=== PATIENT | male | born 1955 | race Caucasian/White ===

== ENCOUNTER 2020-06-17 13:18 | Inpatient (IN) ==
--- NOTE | 2020-06-17 14:09 | Emergency Department Note ---
History of Present Illness General Chief Complaint: Abdominal Pain Stated Complaint: ABD PAIN Time Seen by Provider: 06/17/20 13:58 Source: patient Mode of arrival: ambulatory Limitations: no limitations History of Present Illness Provider Complaint: abdominal pain Maximum Pain Intensity: 0 This is a 65-year-old male who presents to the ED with a chief complaint of shortness of breath and abdominal distention related to ascites. The patient was diagnosed with pancreatic head cancer in early May. He was set up for his first chemotherapy treatment today. The patient states that he went there and was transferred here because he was having difficulty breathing and he has abdominal distention and shortness of breath. The patient states that he has not been eating or drinking much because of his abdominal distention. He was feeling short of breath. The patient's initial pulse ox here was 88%. He was apparently hypotensive at the oncology office with blood pressures in the 80s. His initial blood pressure here was 90 systolic. The patient was also tachycardic with a heart rate of 112. He is afebrile. He reports of abdominal distention and discomfort related to the distention as well as shortness of breath related to the distention. The patient has no additional complaints at this time. Home Medications Home Medications Medication Instructions Recorded Confirmed Type aspirin 81 mg PO PM 05/14/20 06/17/20 History cyanocobalamin (vitamin B-12) 500 mcg PO PM 05/14/20 06/17/20 History [Vitamin B-12] lisinopril 2.5 mg PO HS 05/14/20 06/17/20 History metformin 500 mg PO QAM 05/14/20 06/17/20 History omega 6-dfe-oiz-fish oil [Fish Oil] 1 cap PO PM 05/14/20 06/17/20 History omeprazole 20 mg PO HS 05/14/20 06/17/20 History oxycodone-acetaminophen [Percocet] 1 tab PO Q6H PRN #7 tab 06/11/20 06/17/20 Rx atenolol 50 mg PO DAILY 06/17/20 06/17/20 History ondansetron HCl 8 mg PO Q8H PRN 06/17/20 06/17/20 History prochlorperazine maleate 10 mg PO Q6H PRN 06/17/20 06/17/20 History [Compazine] Allergies Allergy/AdvReac Type Severity Reaction Status Date / Time No Known Allergies Allergy Verified 06/17/20 15:58 Past Med/Surg History Medical History DM2 (diabetes mellitus, type 2) NIDDM GERD (gastroesophageal reflux disease) History of biliary stent insertion AT [place] MAY 2020 Hypertension Liver metastases Neuroendocrine carcinoma PER PATIENT Osteoarthritis Pancreatic mass Surgical History History of colonoscopy History of esophagogastroduodenoscopy (EGD) History of hernia repair INGUINAL X2 Social History Smoking Status: Former smoker Second Hand Exposure: Yes; Hx Alcohol Use: Yes Hx Substance Use: No Preferred Language: [place] Communication Ability: Effective [employer] Required: No Beliefs That Will Affect Care: None Current Living Situation: Spouse Other Information That Helps Us Care for You: No Feels Safe at Home: Yes Safety Concerns: Feels Safe At This Time Review of Systems A total of 10 systems reviewed and were otherwise negative Physical Exam Vital Signs: Vital Signs - 24 hr 06/17/20 13:44 06/17/20 13:51 06/17/20 13:54 Temperature 36.2 C L Temperature Source Oral Pulse Rate 111 H 113 H Pulse Rate [Left F leonel] 112 H Pulse Rate from Sp O2 Sensor 113 H Respiratory Rate 24 36 H 37 H Respiratory Effort / Characteristics Non-Labored Respiratory Depth Normal Blood Pressure 97/61 L Blood Pressure [Le ft Arm] 97/61 L Blood Pressure Jacquie n 82 Blood Pressure Jacquie n [Left Arm] 73 Pulse Oximetry 90 90 90 Oxygen Delivery Me thod Room Air Oxygen Flow Rate Sepsis Recent Feve r Within 48 Hours No Sepsis New/Unexpla ined Change in Men roseanna Status No Sepsis Action Take n by Nursing Physician Notified Oxygen Flow Rate - Titration Pulse Oximetry Pos t Tiitration 06/17/20 13:55 06/17/20 13:58 06/17/20 14:01 Temperature Temperature Source Pulse Rate 110 H 111 H Pulse Rate [Left F leonel] Pulse Rate from Sp O2 Sensor 109 H 111 H Respiratory Rate 35 H 35 H Respiratory Effort / Characteristics Respiratory Depth Blood Pressure Blood Pressure [Le ft Arm] Blood Pressure Jacquie n Blood Pressure Jacquie n [Left Arm] Pulse Oximetry 89 L 88 L 91 Oxygen Delivery Me thod Room Air Oxygen Flow Rate Sepsis Recent Feve r Within 48 Hours Sepsis New/Unexpla ined Change in Men roseanna Status Sepsis Action Take n by Nursing Oxygen Flow Rate - Titration 2 Pulse Oximetry Pos t Tiitration 93 06/17/20 14:02 06/17/20 14:13 06/17/20 14:30 Temperature Temperature Source Pulse Rate 109 H 106 H 102 H Pulse Rate [Left F leonel] 111 H Pulse Rate from Sp O2 Sensor 109 H 106 H 103 H Respiratory Rate 31 H 14 26 H Respiratory Effort / Characteristics Respiratory Depth Blood Pressure 100/71 96/63 L 107/58 L Blood Pressure [Le ft Arm] 100/71 Blood Pressure Jacquie n 77 72 63 Blood Pressure Jacquie n [Left Arm] 80 Pulse Oximetry 91 92 96 Oxygen Delivery Me thod Nasal Cannula Nasal Cannula Oxygen Flow Rate 2 3 Sepsis Recent Feve r Within 48 Hours Sepsis New/Unexpla ined Change in Men roseanna Status Sepsis Action Take n by Nursing Oxygen Flow Rate - Titration Pulse Oximetry Pos t Tiitration 06/17/20 15:00 06/17/20 15:01 06/17/20 15:11 Temperature Temperature Source Pulse Rate 110 H 109 H Pulse Rate [Left F leonel] Pulse Rate from Sp O2 Sensor 110 H 109 H Respiratory Rate Respiratory Effort / Characteristics Respiratory Depth Blood Pressure 125/54 L Blood Pressure [Le ft Arm] Blood Pressure Jacquie n 90 Blood Pressure Jacquie n [Left Arm] Pulse Oximetry 94 95 92 Oxygen Delivery Me thod Nasal Cannula Oxygen Flow Rate 2 Sepsis Recent Feve r Within 48 Hours Sepsis New/Unexpla ined Change in Men roseanna Status Sepsis Action Take n by Nursing Oxygen Flow Rate - Titration Pulse Oximetry Pos t Tiitration 06/17/20 15:30 06/17/20 16:17 06/17/20 16:18 Temperature Temperature Source Pulse Rate 118 H 106 H 100 H Pulse Rate [Left F leonel] Pulse Rate from Sp O2 Sensor 107 H 101 H Respiratory Rate 28 H 26 H Respiratory Effort / Characteristics Respiratory Depth Blood Pressure 117/85 104/63 Blood Pressure [Le ft Arm] Blood Pressure Jacquie n 94 88 Blood Pressure Jacquie n [Left Arm] Pulse Oximetry 91 95 Oxygen Delivery Me thod Oxygen Flow Rate Sepsis Recent Feve r Within 48 Hours Sepsis New/Unexpla ined Change in Men roseanna Status Sepsis Action Take n by Nursing Oxygen Flow Rate - Titration Pulse Oximetry Pos t Tiitration Physical Exam: CONSTITUTIONAL/VITAL SIGNS: Reviewed / noted above. GENERAL: Non-toxic in appearance. INTEGUMENTARY: Warm, dry, and [place]. HEAD: Normocephalic. EYES: without scleral icterus or trauma. ENT/OROPHARYNX: clear and moist. LYMPHADENOPATHY/NECK: Is supple without lymphadenopathy or meningismus. RESPIRATORY: Lungs clear and equal. CARDIOVASCULAR: Regular rate and rhythm. GI/ABDOMEN: Severely distended. EXTREMITIES: Warm and well perfused. BACK: No CVA tenderness. NEUROLOGICAL: Intact without focal deficits. PSYCHIATRIC: normal affect. MUSCULOSKELETAL: Normally developed with good muscle tone. TRIAGE NURSING DOCUMENTATION REVIEWED. Procedures Paracentesis Time Out Performed: Yes Indication: Ascites Procedure: therapeutic paracentesis Location: RLQ Local Anesthetic: lidocaine 1% Amount of anesthesia used (mL): 10 Bedside Ultrasound Used: yes, real-time guidance Preparation: 11 blade used to make verónica in skin Amount of fluid obtained (mL): 5,000 Fluid: cloudy and sent to lab for analysis Size of Needle Used: 16 Post Procedure Exam: awake, alert Patient Tolerated Procedure: well Complications: none Course Administered Medications Albumin Human (Albumin 25%) 50 mls @ 50 mls/hr IV Q1H [facility] Stop: 06/17/20 17:29 Last Admin: 06/17/20 15:21 Dose: 50 mls/hr Documented by: [id number] Infusion: 06/17/20 15:20 Dose: 0 mls/hr Documented by: [id number] Admin: 06/17/20 14:47 Dose: 50 mls/hr Documented by: [id number] Discontinued Medications Dextrose (Dextrose 50%) 50 ml IV NOW ONE Stop: 06/17/20 14:12 Last Admin: 06/17/20 14:41 Dose: 50 ml Documented by: [id number] Sodium Chloride (Nss) 500 mls @ 999 mls/hr IV .Q31M GREGG Stop: 06/17/20 14:45 Last Infusion: 06/17/20 14:40 Dose: 0 mls/hr Documented by: [id number] Admin: 06/17/20 14:09 Dose: 999 mls/hr Documented by: [id number] Calcium Gluconate 1,000 mg/ (Sodium Chloride) 60 mls @ 240 mls/hr IV NOW STA Stop: 06/17/20 14:25 Last Infusion: 06/17/20 14:57 Dose: 0 mls/hr Documented by: [id number] Admin: 06/17/20 14:42 Dose: 240 mls/hr Documented by: [id number] Sodium Chloride (Nss 1000ml) 1,000 mls @ 999 mls/hr IV .Q1H1M ONE Stop: 06/17/20 15:26 Last Admin: 06/17/20 14:33 Dose: 999 mls/hr Documented by: [id number] Insulin Human Regular (Novolin R U-100 Per Unit) 10 units IV NOW STA Stop: 06/17/20 14:12 Last Admin: 06/17/20 14:38 Dose: 10 units Documented by: [id number] Cosigned by: [id number] Ondansetron HCl (Zofran) Confirm Administered Dose 4 mg .ROUTE .STK-MED ONE Stop: 06/17/20 14:23 Last Admin: 06/17/20 14:24 Dose: 4 mg Documented by: [id number] Sodium Bicarbonate (Sodium Bicarbonate 8.4%) 50 meq IV NOW STA Stop: 06/17/20 14:12 Last Admin: 06/17/20 14:39 Dose: 50 meq Documented by: [id number] Medical Decision Making Differential Diagnosis + biliary pathology Differential considered: pancreatitis, hepatitis, acute cholecystitis, AAA, UTI, pyelonephritis, kidney stones, appendicitis, diverticulitis, shingles, bowel obstruction, mesenteric ischemia, intussusception,hernia. Medical Records Attestation: I reviewed the patient's medical records. Home Medications Current Medication List: was personally reviewed by me Laboratory Data Attestation: I reviewed the patient's lab results. Result diagrams: 06/17/20 14:00 06/17/20 14:00 Lab Results 06/17/20 06/17/20 06/17/20 Range/Units 14:00 14:00 14:00 WBC 14.53 H (4.8-10.8) K/uL RBC 4.31 L (4.7-6.1) M/uL Hgb 13.6 L (14.0-18.0) g/dL POC Hgb (14.0-18.0) g/dl Hct 39.9 L (42-52) % POC Hct (42-52) % MCV 92.6 (80-100) fL MCH 31.6 (25-34) pg MCHC 34.1 (32-36) g/dL RDW Std Deviation 49.4 H (36.4-46.3) fL RDW Coeff of Isabelle 14.4 (11.5-14.5) % Plt Count 666 H (130-400) K/uL MPV 10.3 (7.4-10.4) fL Immature Gran % (Auto) 0.5 % Neut % (Auto) 87.5 % Lymph % (Auto) 4.5 % Coos % (Auto) 7.4 % Eos % (Auto) 0.0 % Baso % (Auto) 0.1 % Neut # (Auto) 12.72 H (1.4-6.5) K/uL Lymph # (Auto) 0.66 L (1.2-3.4) K/uL Coos # (Auto) 1.07 H (0.11-0.59) K/uL Eos # (Auto) 0.00 (0-0.5) K/uL Baso # (Auto) 0.01 (0-0.2) K/uL Immature Gran # (Auto) 0.07 H (0.00-0.02) K/uL PT 11.9 (9.0-12.0) Seconds INR 1.1 (0.9-1.1) POC Sodium (135-144) mmol/L Sodium 128 L (136-145) mmol/L POC Potassium (3.3-5.0) mmol/L Potassium 6.4 H* (3.5-5.1) mmol/L POC Chloride (101-112) mmol/L Chloride 95 L (98-107) mmol/L Carbon Dioxide 17 L (21-32) mmol/L POC Total CO2 (24-31) mmol/L Anion Gap 17.0 H (3-11) POC Anion Gap (16-25) mmol/L POC BUN (7-18) mg/dl BUN 63 H (7-18) mg/dl Creatinine 3.01 H (0.6-1.4) mg/dl POC Creatinine (0.6-1.3) mg/dl Est Cr Clr Drug Dosing Not Reportable Est GFR ( Amer) 23.7 Est GFR (Non-Af Amer) 20.5 BUN/Creatinine Ratio 21.0 H (10-20) Glucose 194 H (70-99) mg/dl POC Glucose (other) (70-99) mg/dl Calcium 9.6 (8.5-10.1) mg/dl POC Ioniz Calcium Mary Ellen (1.12-1.32) mmol/l Total Bilirubin 1.6 H (0.2-1) mg/dl AST 137 H (15-37) U/L ALT 60 (12-78) U/L Alkaline Phosphatase 137 H (45-117) U/L Total Protein 7.6 (6.4-8.2) gm/dl Albumin 1.9 L (3.4-5.0) gm/dl Globulin 5.7 H (2.5-4.0) gm/dl Albumin/Globulin Ratio 0.3 L (0.9-2) Lipase 90 (73-393) U/L Peritoneal Color Peritoneal Appearance Peritoneal WBC (0-300) /ul Peritoneal RBC /uL Peritoneal Tot Protein g/dl Peritoneal LDH U/L Peritoneal Glucose mg/dl Peritoneal Amylase U/L Peritoneal Lipase U/L Peritoneal Triglycerid mg/dl 06/17/20 06/17/20 06/17/20 Range/Units 14:08 15:17 15:17 WBC (4.8-10.8) K/uL RBC (4.7-6.1) M/uL Hgb (14.0-18.0) g/dL POC Hgb 14.6 (14.0-18.0) g/dl Hct (42-52) % POC Hct 43 (42-52) % MCV (80-100) fL MCH (25-34) pg MCHC (32-36) g/dL RDW Std Deviation (36.4-46.3) fL RDW Coeff of Isabelle (11.5-14.5) % Plt Count (130-400) K/uL MPV (7.4-10.4) fL Immature Gran % (Auto) % Neut % (Auto) % Lymph % (Auto) % Coos % (Auto) % Eos % (Auto) % Baso % (Auto) % Neut # (Auto) (1.4-6.5) K/uL Lymph # (Auto) (1.2-3.4) K/uL Coos # (Auto) (0.11-0.59) K/uL Eos # (Auto) (0-0.5) K/uL Baso # (Auto) (0-0.2) K/uL Immature Gran # (Auto) (0.00-0.02) K/uL PT (9.0-12.0) Seconds INR (0.9-1.1) POC Sodium 128 L (135-144) mmol/L Sodium (136-145) mmol/L POC Potassium 6.4 H* (3.3-5.0) mmol/L Potassium (3.5-5.1) mmol/L POC Chloride 98 L (101-112) mmol/L Chloride (98-107) mmol/L Carbon Dioxide (21-32) mmol/L POC Total CO2 19 L (24-31) mmol/L Anion Gap (3-11) POC Anion Gap 18.0 (16-25) mmol/L POC BUN 54 H (7-18) mg/dl BUN (7-18) mg/dl Creatinine (0.6-1.4) mg/dl POC Creatinine 3.0 H (0.6-1.3) mg/dl Est Cr Clr Drug Dosing Est GFR ( Amer) Est GFR (Non-Af Amer) BUN/Creatinine Ratio (10-20) Glucose (70-99) mg/dl POC Glucose (other) 196 H (70-99) mg/dl Calcium (8.5-10.1) mg/dl POC Ioniz Calcium Mary Ellen 1.06 L (1.12-1.32) mmol/l Total Bilirubin (0.2-1) mg/dl AST (15-37) U/L ALT (12-78) U/L Alkaline Phosphatase (45-117) U/L Total Protein (6.4-8.2) gm/dl Albumin (3.4-5.0) gm/dl Globulin (2.5-4.0) gm/dl Albumin/Globulin Ratio (0.9-2) Lipase (73-393) U/L Peritoneal Color YELLOW Peritoneal Appearance CLOUDY Peritoneal WBC 14909 H (0-300) /ul Peritoneal RBC < 3000 /uL Peritoneal Tot Protein 2.6 g/dl Peritoneal LDH 510 U/L Peritoneal Glucose 110 mg/dl Peritoneal Amylase 8 U/L Peritoneal Lipase 20 U/L Peritoneal Triglycerid 32 mg/dl Imaging Data Attestation: I personally reviewed and interpreted this imaging study as follows: My Impression: Chest x-ray: Per my review there is low lung volumes. Basilar atelectasis. Radiologist's Impression: IMPRESSION: 1. Bilateral lower lung zone opacities, atelectasis versus pneumonia 2. Multiple hepatic masses consistent with metastatic disease 3. 8 cm pancreatic head mass. Peripancreatic adenopathy 4. Increasing ascites 5. Small droplets of free intraperitoneal air. This is a nonspecific finding which could be secondary to the patient's indwelling peritoneal drainage catheter, although a perforated viscus could appear similar. 6. Dilated bowel loops with a colonic transition at the level of the splenic flexure. Ileus versus obstructing colonic lesion. 7. Examination limited due to the lack of intravenous and oral contr ECG Data Attestation: I personally reviewed and interpreted this ECG as follows: Indication: weakness Rate (beats per minute): 111 Rhythm: sinus tachycardia Findings: no PVC, no ST elevation and no prolonged QT Blood Pressure Blood Pressure Findings: Low blood pressure MDM Narrative The patient is a 65-year-old male who was recently diagnosed with pancreatic cancer. He arrived at his first chemotherapy treatment today hypotensive and with abdominal distention and short of breath. He was brought here for evaluation. His initial vital signs revealed hypoxia with oxygen saturations of 88% on room air. He was tachycardic with a heart rate of 112. He was tachypneic with a respiratory rate of 37. He was found to be in acute renal failure with a creatinine of 3.0 and a BUN of 68. The patient was also hyperkalemic with a potassium of 6.4. He did not have any acute EKG changes. His EKG showed a sinus tach with normal QRS and normal T waves. He was treated for his hyperkalemia with IV calcium, IV bicarb, IV dextrose and IV insulin as well as a liter and a half of IV fluids. The patient was also given IV albumin as we did do paracentesis on him and removed about 5 L of fluid. The paracentesis fluid was sent for testing. The patient's symptoms did improve as did his blood pressure and breathing with removal of fluid from the abdominal cavity. He will require inpatient evaluation for his acute renal failure and hypotension which is likely related to dehydration as he has not been able to eat or drink much recently because of the significant ascites. The patient was given IV cefepime because the white cell count in the ascites fluid was 11,000. I did note the CT scan of the abdomen pelvis that was ordered by the medicine service. They did note some bubbles of air in the ascites fluid. I suspect this is from the lidocaine injection that did have some air bubbles in it. They did note on the CT scan also that there are some basilar atelectasis versus pneumonia in the base of the lungs. I suspect this is more likely atelectasis. Impression & Plan Acute renal failure, Acute dehydration, Acute hyperkalemia, Abdominal ascites, Shortness of breath Critical Care Time Critical Care Time: Yes Total Critical Care Time: 50 I have personally spent 50 minutes of critical care time in the direct management of this patient. This includes bedside care, interpretation of diagnostic studies, and testing, discussion with consultants, patient, and family members, and other required patient management activities. This 50 minutes is in excess of all separately billable procedures. Discharge Plan Visit Data Chief Complaint: Abdominal Pain Stated Complaint: ABD PAIN ED Provider: Sacha Sevilla Discharge Problem: Acute renal failure, Acute dehydration, Acute hyperkalemia, Abdominal ascites, Shortness of breath Patient Disposition: Being Evaluated by Hospitalist Forms Stand Alone Forms: [facility] Prescriptions Prescriptions: No Action metformin 500 mg tablet 500 mg PO QAM RF: 0 aspirin 81 mg Tablet,Delayed Release (Dr/Ec) 81 mg PO PM RF: 0 cyanocobalamin (vitamin B-12) [Vitamin B-12] 500 mcg Tablet 500 mcg PO PM RF: 0 omeprazole 20 mg capsule,delayed release(DR/EC) 20 mg PO HS RF: 0 lisinopril 2.5 mg tablet 2.5 mg PO HS RF: 0 omega 2-oot-rwk-fish oil [Fish Oil] 1,000 mg (120 mg-180 mg) Capsule 1 cap PO PM RF: 0 ondansetron HCl 4 mg tablet 8 mg PO Q8H PRN (Reason: Nausea) RF: 0 prochlorperazine maleate [Compazine] 10 mg Tablet 10 mg PO Q6H PRN (Reason: Nausea) RF: 0 atenolol 50 mg tablet 50 mg PO DAILY RF: 0 oxycodone-acetaminophen [Percocet] 5-325 mg tablet 1 tab PO Q6H PRN (Reason: pain) Qty: 7 RF: 0 Referrals Referrals: Mireille Solorzano DO [Primary Care Provider] - Discharge Problem: Acute renal failure Qualifiers: Acute renal failure type: unspecified Qualified Code(s): N17.9 - Acute kidney failure, unspecified
[2020-06-17] MEDS ORDERED: DEXTROSE 50% 50 ML SYRINGE IV ONE (14:11)
[2020-06-17] MEDS ORDERED: CALCIUM GLUCONATE 10% 1,000 MG in SODIUM CHLORIDE 0.9% 50 ML IV STA ×2 (14:11→22:43)
[2020-06-17] MEDS ORDERED: NovoLIN-R INSULIN PER UNIT CHARGE IV STA (14:11)
[2020-06-17] MEDS ORDERED: SODIUM BICARB 8.4% INJ 50 MEQ/50 ML SYR IV STA (14:11)
[2020-06-17] MEDS ORDERED: SODIUM CHLORIDE 0.9% 500 ML IV SCH (14:15)
[2020-06-17 14:16] LABS: Basophils # (auto) 0.01 K/uL (0-0.2); Basophils % (auto) 0.1 %; Hematocrit (blood only) 39.9 % (42-52); Hemoglobin 13.6 g/dL (14.0-18.0); Immature Granulocytes # (auto) 0.07 K/uL (0.00-0.02); Immature Granulocytes % (auto) 0.5 %; Lymphocytes # (auto) 0.66 K/uL (1.2-3.4); Lymphocytes % (auto) 4.5 %; Mean Corpuscular Hemoglobin 31.6 pg (25-34); Mean Corpuscular Hgb Conc 34.1 g/dL (32-36); Mean Corpuscular Volume 92.6 fL (80-100); Mean Platelet Volume 10.3 fL (7.4-10.4); Monocytes # (auto) 1.07 K/uL (0.11-0.59); Monocytes % (auto) 7.4 %; Neutrophils # (auto) 12.72 K/uL (1.4-6.5); Neutrophils % (auto) 87.5 %; Platelet Count 666 K/uL (130-400); RDW Coefficient of Variation 14.4 % (11.5-14.5); RDW Standard Deviation 49.4 fL (36.4-46.3); Red Blood Count 4.31 M/uL (4.7-6.1); White Blood Count 14.53 K/uL (4.8-10.8)
[2020-06-17 14:20] LABS: iSTAT Hemoglobin 14.6 g/dl (14.0-18.0); iSTAT Ionized Calcium 1.06 mmol/l (1.12-1.32); iSTAT Potassium 6.4 mmol/L (3.3-5.0)
[2020-06-17] MEDS ORDERED: ONDANSETRON INJ 2 MG/ML 2 ML VIAL ONE (14:22)
[2020-06-17] MEDS ORDERED: SODIUM CHLORIDE 0.9% 1000ML 1,000 ML IV ONE (14:26)
[2020-06-17 14:27] LABS: INR 1.1 (0.9-1.1); Prothrombin Time 11.9 Seconds (9.0-12.0)
[2020-06-17 14:30] LABS: Alanine Aminotransferase 60 U/L (12-78); Albumin Level 1.9 gm/dl (3.4-5.0); Aspartate Aminotransferase 137 U/L (15-37); Blood Urea Nitrogen 63 mg/dl (7-18); Calcium 9.6 mg/dl (8.5-10.1); Carbon Dioxide 17 mmol/L (21-32); Chloride 95 mmol/L (98-107); Est GFR (African American) 23.7; Est GFR (Non-African American) 20.5; Glucose 194 mg/dl (70-99); Lipase 90 U/L (73-393); Potassium 6.4 mmol/L (3.5-5.1); Sodium 128 mmol/L (136-145)
[2020-06-17 14:31] LABS: Albumin Globulin Ratio 0.3 (0.9-2); Alkaline Phosphatase 137 U/L (45-117); Bilirubin,Total 1.6 mg/dl (0.2-1); Globulin 5.7 gm/dl (2.5-4.0); Total Protein 7.6 gm/dl (6.4-8.2)
[2020-06-17] MEDS: ALBUMIN 25% 50 ML IV SCH ×3 (14:47→16:42)
--- NOTE | 2020-06-17 15:44 | History & Physical Report ---
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 -In setting of incurable metastatic neuroendocrine cancer s/p recent biliary stent insertion. Most likely malignant ascites vs. possible SBP although non- tender abdominal exam -Paracentesis performed in ED with 5 L drainage and still collecting, also given 50ml albumin x 3 bags. Peritoneal fluid with >11,000 wbcs and growth of moderate gram positive cocci -final culture pending -Meets sepsis criteria with tachycardia of 111, RR of 26, leukocytosis of 14.5. Lactic acid pending. Received 1.5 L NSS in ED with improved BP to 125/54 -Cover with cefepime for now. Follow cultures. Consider adding MRSA coverage due to recent hospitalization and procedures increasing risk (3) Neuroendocrine carcinoma: (4) Liver metastases: Diagnosed 1 month ago with high-grade neuroendocrine tumor with metastatic incurable disease -Was due to start chemotherapy today but due to ascites and acute renal failure, was sent to [facility] for paracentesis -Discussed case with Dr. Ramirez today, who stated that patient is not a candidate for palliative chemo at this time with ARF -Had lengthy conversation about poor prognosis with patient today - poor insight to progressed state of disease. Agreeable to further discussion with & palliative service -Code status discussed in detail - full code (5) Acute renal failure: Cr elevated to 3 today (0.8 last month), K of 6.4, bicarb of 17 -Renal ultrasound pending. Discussed with Dr. Ayala - repeat lab work ordered. She will evaluate patient. Appreciate recommendations (6) Acute hyperkalemia: No acute EKG changes. Treated in ED with IV calcium, IV bicarb, IV dextrose and IV insulin as well as IV fluids -Repeat BMP pending (7) Abnormal CT of the abdomen: CT abd/pelvis with dilated bowel loops with a colonic transition at the level of the splenic flexure. Ileus versus obstructing colonic lesion -Routine consult for general surgery for recommendations (8) DM2 (diabetes mellitus, type 2): -Hold home agents -SSI while in-patient -BSG AC HS (9) GERD (gastroesophageal reflux disease): Continue PPI DVT Ppx: SCDs for now. High risk for DVT given wide spread metastatic malignancybut currently with paracentesis catheter in place. Consider pharmacological anticoagulation needs to be considered when bleeding risk is minimum / no plan for procedure or surgery Code status: FULL CODE per discussion with patient PCP: Mary Solorzano Dispo: Admitted to PCU. Discharge planning ordered. Patient seen in collaboration with Dr. Solares. Please see addendum. 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 Patient began to notice jaundice in mid-April of this year along with abdominal pain and 40 pound weight loss. Was transferred from [facility] ED to [facility] for liver biopsy and further management. Underwent ERCP/EUS on 05/15/2020 which included biopsies of the pancreatic mass and liver lesion and a mid-distal CBD stent was placed to relieve the obstruction. Biopsy from the liver mass and pancreatic FNA is consistent with a high-grade features of neuroendocrine tumor. Established care with Dr. Ramirez two weeks ago and was told he had metastatic incurable disease and was offered palliative chemotherapy of etoposide and cisplatin, which he was scheduled to start today. Due to nausea and significant abdominal bloating, chemo treatment was held and patient was sent to [facility] ED for further evaluation and ultrasound-guided paracentesis. Patient is feeling weak and nauseous. Abdominal tightness is improving with paracentesis. Denies any fever and chills, lightheadedness, visual changes, chest pain, palpitations, abdominal pain, diarrhea or constipation. Decreased appetite and decreased urine output in the past few days. Allergies Allergy/AdvReac Type Severity Reaction Status Date / Time No Known Allergies Allergy Verified 06/17/20 15:58 Home Medications Home Medications Medication Instructions Recorded Confirmed Type aspirin 81 mg PO PM 05/14/20 06/17/20 History cyanocobalamin (vitamin B-12) 500 mcg PO PM 05/14/20 06/17/20 History [Vitamin B-12] lisinopril 2.5 mg PO HS 05/14/20 06/17/20 History metformin 500 mg PO QAM 05/14/20 06/17/20 History omega 3-qyt-ndw-fish oil [Fish Oil] 1 cap PO PM 05/14/20 06/17/20 History omeprazole 20 mg PO HS 05/14/20 06/17/20 History oxycodone-acetaminophen [Percocet] 1 tab PO Q6H PRN #7 tab 06/11/20 06/17/20 Rx atenolol 50 mg PO DAILY 06/17/20 06/17/20 History ondansetron HCl 8 mg PO Q8H PRN 06/17/20 06/17/20 History prochlorperazine maleate 10 mg PO Q6H PRN 06/17/20 06/17/20 History [Compazine] Past Med/Surg History Medical History DM2 (diabetes mellitus, type 2) NIDDM GERD (gastroesophageal reflux disease) History of biliary stent insertion AT [facility] MAY 2020 Hypertension Liver metastases Neuroendocrine carcinoma Diagnosed earlier in May 2020 Osteoarthritis Pancreatic mass Surgical History History of colonoscopy History of esophagogastroduodenoscopy (EGD) History of hernia repair INGUINAL X2 Family History Other Thyroid disease Social History Smoking Status: Former smoker Second Hand Exposure: Yes; Hx Alcohol Use: Yes (history of heavy use, quit in Dec 2019) Hx Substance Use: No Preferred Language: Romansh Communication Ability: Effective Hvac Installation Technician Required: No Beliefs That Will Affect Care: None Current Living Situation: Spouse Other Information That Helps Us Care for You: No Feels Safe at Home: Yes Safety Concerns: Feels Safe At This Time Review of Systems Review of Systems: At least ten systems reviewed and negative except as noted in the HPI. Physical Exam Physical Exam: General Appearance: vitals as above, appears chronically ill, sitting up in bed, pleasant, conversational dyspnea Head: normocephalic, atraumatic Eyes: normal inspection, PERRL, conjunctivae normal, anicteric sclerae ENT: external ear and nose normal, oropharynx normal Neck: trachea midline, no thyromegaly, normal visual inspection Respiratory: normal respiratory effort, diminished lung sounds throughout. Normal insp/exp effort, no accessory muscle use Cardiovascular: tachycardic rate, regular rhythm, no murmur appreciated, normal peripheral pulses. Vessels: no JVD Chest: normal inspection of chest Abdomen/GI: normal bowel sounds, taut distended abdomen with paracentesis catheter in place draining yellow liquid into collection bag, non-tender Extremities/Musculoskeletal: no cyanosis or clubbing, extremities motor strength 5/5 Neurologic: PERRL, EOMI, accommodation nl, no face palsy, no dysarthria, CN's II-XI intact bilaterally and moves all extremities Psychiatric: A+Ox3, euthymic affect. + poor insight Skin: no rashes, normal color, warm/dry Results & Data Results & Data ([facility]) Vital Signs (Past 12 Hours) Vital Signs Temp Pulse Pulse Resp BP BP Pulse Ox 06/17/20 15:11 92 06/17/20 14:30 102 H 26 H 107/58 L 96 06/17/20 14:13 106 H 14 96/63 L 92 06/17/20 14:02 109 H 111 H 31 H 100/71 100/71 91 06/17/20 14:01 111 H 35 H 91 06/17/20 13:58 88 L 06/17/20 13:55 110 H 35 H 89 L 06/17/20 13:54 112 H 37 H 97/61 L 90 06/17/20 13:51 113 H 36 H 97/61 L 90 06/17/20 13:44 36.2 C L 111 H 24 90 Laboratory Results Short CBC 06/17/20 06/17/20 06/17/20 Range/Units 14:00 14:00 14:00 WBC 14.53 H (4.8-10.8) K/uL RBC 4.31 L (4.7-6.1) M/uL Hgb 13.6 L (14.0-18.0) g/dL POC Hgb (14.0-18.0) g/dl Hct 39.9 L (42-52) % POC Hct (42-52) % MCV 92.6 (80-100) fL MCH 31.6 (25-34) pg MCHC 34.1 (32-36) g/dL RDW Std Deviation 49.4 H (36.4-46.3) fL RDW Coeff of Isabelle 14.4 (11.5-14.5) % Plt Count 666 H (130-400) K/uL MPV 10.3 (7.4-10.4) fL Immature Gran % (Auto) 0.5 % Neut % (Auto) 87.5 % Lymph % (Auto) 4.5 % [place] % (Auto) 7.4 % Eos % (Auto) 0.0 % Baso % (Auto) 0.1 % Neut # (Auto) 12.72 H (1.4-6.5) K/uL Lymph # (Auto) 0.66 L (1.2-3.4) K/uL [place] # (Auto) 1.07 H (0.11-0.59) K/uL Eos # (Auto) 0.00 (0-0.5) K/uL Baso # (Auto) 0.01 (0-0.2) K/uL Immature Gran # (Auto) 0.07 H (0.00-0.02) K/uL PT 11.9 (9.0-12.0) Seconds INR 1.1 (0.9-1.1) POC Sodium (135-144) mmol/L Sodium 128 L (136-145) mmol/L POC Potassium (3.3-5.0) mmol/L Potassium 6.4 H* (3.5-5.1) mmol/L POC Chloride (101-112) mmol/L Chloride 95 L (98-107) mmol/L Carbon Dioxide 17 L (21-32) mmol/L POC Total CO2 (24-31) mmol/L Anion Gap 17.0 H (3-11) POC Anion Gap (16-25) mmol/L POC BUN (7-18) mg/dl BUN 63 H (7-18) mg/dl Creatinine 3.01 H (0.6-1.4) mg/dl POC Creatinine (0.6-1.3) mg/dl Est Cr Clr Drug Dosing Not Reportable Est GFR ( Amer) 23.7 Est GFR (Non-Af Amer) 20.5 BUN/Creatinine Ratio 21.0 H (10-20) Glucose 194 H (70-99) mg/dl POC Glucose (other) (70-99) mg/dl Calcium 9.6 (8.5-10.1) mg/dl POC Ioniz Calcium Mary Ellen (1.12-1.32) mmol/l Total Bilirubin 1.6 H (0.2-1) mg/dl AST 137 H (15-37) U/L ALT 60 (12-78) U/L Alkaline Phosphatase 137 H (45-117) U/L Total Protein 7.6 (6.4-8.2) gm/dl Albumin 1.9 L (3.4-5.0) gm/dl Globulin 5.7 H (2.5-4.0) gm/dl Albumin/Globulin Ratio 0.3 L (0.9-2) Lipase 90 (73-393) U/L Peritoneal Color Peritoneal Appearance Peritoneal WBC (0-300) /ul Peritoneal RBC /uL Peritoneal Tot Protein g/dl Peritoneal LDH U/L Peritoneal Glucose mg/dl Peritoneal Amylase U/L Peritoneal Lipase U/L Peritoneal Triglycerid mg/dl 06/17/20 06/17/20 06/17/20 Range/Units 14:08 15:17 15:17 WBC (4.8-10.8) K/uL RBC (4.7-6.1) M/uL Hgb (14.0-18.0) g/dL POC Hgb 14.6 (14.0-18.0) g/dl Hct (42-52) % POC Hct 43 (42-52) % MCV (80-100) fL MCH (25-34) pg MCHC (32-36) g/dL RDW Std Deviation (36.4-46.3) fL RDW Coeff of Isabelle (11.5-14.5) % Plt Count (130-400) K/uL MPV (7.4-10.4) fL Immature Gran % (Auto) % Neut % (Auto) % Lymph % (Auto) % [place] % (Auto) % Eos % (Auto) % Baso % (Auto) % Neut # (Auto) (1.4-6.5) K/uL Lymph # (Auto) (1.2-3.4) K/uL [place] # (Auto) (0.11-0.59) K/uL Eos # (Auto) (0-0.5) K/uL Baso # (Auto) (0-0.2) K/uL Immature Gran # (Auto) (0.00-0.02) K/uL PT (9.0-12.0) Seconds INR (0.9-1.1) POC Sodium 128 L (135-144) mmol/L Sodium (136-145) mmol/L POC Potassium 6.4 H* (3.3-5.0) mmol/L Potassium (3.5-5.1) mmol/L POC Chloride 98 L (101-112) mmol/L Chloride (98-107) mmol/L Carbon Dioxide (21-32) mmol/L POC Total CO2 19 L (24-31) mmol/L Anion Gap (3-11) POC Anion Gap 18.0 (16-25) mmol/L POC BUN 54 H (7-18) mg/dl BUN (7-18) mg/dl Creatinine (0.6-1.4) mg/dl POC Creatinine 3.0 H (0.6-1.3) mg/dl Est Cr Clr Drug Dosing Est GFR ( Amer) Est GFR (Non-Af Amer) BUN/Creatinine Ratio (10-20) Glucose (70-99) mg/dl POC Glucose (other) 196 H (70-99) mg/dl Calcium (8.5-10.1) mg/dl POC Ioniz Calcium Mary Ellen 1.06 L (1.12-1.32) mmol/l Total Bilirubin (0.2-1) mg/dl AST (15-37) U/L ALT (12-78) U/L Alkaline Phosphatase (45-117) U/L Total Protein (6.4-8.2) gm/dl Albumin (3.4-5.0) gm/dl Globulin (2.5-4.0) gm/dl Albumin/Globulin Ratio (0.9-2) Lipase (73-393) U/L Peritoneal Color YELLOW Peritoneal Appearance CLOUDY Peritoneal WBC 05117 H (0-300) /ul Peritoneal RBC < 3000 /uL Peritoneal Tot Protein 2.6 g/dl Peritoneal LDH 510 U/L Peritoneal Glucose 110 mg/dl Peritoneal Amylase 8 U/L Peritoneal Lipase 20 U/L Peritoneal Triglycerid 32 mg/dl BMP 08/10/20 14:00 Sodium 128 L Potassium 6.4 H* Chloride 95 L Carbon Dioxide 17 L BUN 63 H Creatinine 3.01 H Glucose 194 H Calcium 9.6 Liver Function 06/17/20 Range/Units 14:00 Total Bilirubin 1.6 H (0.2-1) mg/dl AST 137 H (15-37) U/L ALT 60 (12-78) U/L Alkaline Phosphatase 137 H (45-117) U/L Albumin 1.9 L (3.4-5.0) gm/dl Diagnostic Findings CXR: IMPRESSION: Low lung volumes with basilar opacities, atelectatic versus infectious/inflammatory CT abd/pelvis: IMPRESSION: 1. Bilateral lower lung zone opacities, atelectasis versus pneumonia 2. Multiple hepatic masses consistent with metastatic disease 3. 8 cm pancreatic head mass. Peripancreatic adenopathy 4. Increasing ascites 5. Small droplets of free intraperitoneal air. This is a nonspecific finding which could be secondary to the patient's indwelling peritoneal drainage catheter, although a perforated viscus could appear similar. 6. Dilated bowel loops with a colonic transition at the level of the splenic f lexure. Ileus versus obstructing colonic lesion. 7. Examination limited due to the lack of intravenous and oral contrast Supervising Physician Co-Signing Physician Notes ATTENDING ADDENDUM: pt seen and examined , care -co ordinated with Cassandra Miranda PA-C 65 yo unfortunate male , recently diagnosed with metastatic neuroendocrine tumor, with mets to liver, pancreatic head, Biopsy from the liver mass and pancreatic FNA consistent with a high-grade neural endocrine tumor, Patient was evaluated by hematology oncology and clinic, extremely poor prognosis, a incurable illness. Option was considered for palliative chemo, Patient presented to the hematology oncology office with complaint of nausea vomiting worsening of abdominal pain increased abdominal girth poor appetite generalized weakness for past several days In the ER lab shows acute renal failure creatinine elevated to 3 (baseline creatinine 0.8 in recent labs With hyperkalemia potassium more than 6, paracentesis done ER, large amount of very turbid color acetic fluid drained, ascitic fluid analysis, WBC more than 11,000, Gram stain gram-positive cocci Overall prognosis remains extremely poor Physical exam: Brief General: Very ill appearing male with significant temporal wasting noted, at present denies of any pain HEENT, icteric sclera Heart: Regular S1-S2 next lungs, diminished breath sounds Abdomen, grossly distended, tense ascites, Extremities,: +2 bilateral lower extremity edema Neuro: No focal neurological deficit Metastatic malignancy: High-grade metastatic neuroendocrine tumor with widespread mets including pancreatic head, liver, abdominal cavity, peritoneum Overall prognosis extremely poor Incurable disease, not a candidate for palliative chemo secondary to acute renal failure electrolyte imbalance/ATN Overall prognosis, limited life expectancy explained to patient, Does not feel that he is ready for hospice yet, but willing for the palliative care consult SBP versus peritoneal carcinomatosis Ordered IV cefepime, follow ascitic fluid culture, Very poor prognosis Acute renal failure/ATN Presents with creatinine elevated to 3, oliguric renal failure with significant electrolytes imbalance, hyponatremia, hyperkalemia metabolic acidosis Nephrology consulted, overall prognosis very poor, not a candidate for dialysis Started on IV bicarb drip, PRP every 4 hours Overall prognosis remains poor Patient developed anuric renal failure, IV fluids/bicarb drip will be discontinued Palliative/comfort care would be appropriate CODE STATUS: Discussed in detail with patient regarding overall poor prognosis, Patient still indecisive about wants to have resuscitation attempt to be done in the setting of cardiopulmonary arrest, does not want long-term mechanical ventilation Palliative care consulted Refer to further documentation by Cassandra Miranda PA-C for discussion of other medical issues Beck NAVA (1) Acute renal failure Acute renal failure type: unspecified Qualified Code(s): N17.9 - Acute kidney failure, unspecified
[2020-06-17 16:16] LABS: Total Protein Peritoneal Fluid 2.6 g/dl
[2020-06-17] MEDS ORDERED: SODIUM CHLORIDE 0.9% 1000ML 1,000 ML IV SCH (16:16)
[2020-06-17 16:20] LABS: Appearance Peritoneal Fluid CLOUDY; Color Peritoneal Fluid YELLOW; RBC Peritoneal Fluid (A) < 3000 /uL; WBC Peritoneal Fluid (A) 11512 /ul (0-300)
--- NOTE | 2020-06-17 16:25 | CT Scan Report ---
CT SCAN OF THE ABDOMEN AND PELVIS WITHOUT CONTRAST CLINICAL HISTORY: abdominal bloating, metastatic CA COMPARISON STUDY: 05/14/2020 TECHNIQUE: CT scan of the abdomen and pelvis was performed from the lung bases to the proximal femurs . Images are reviewed in the axial, sagittal, and coronal planes. IV contrast was not administered fo r this examination. A dose lowering technique was utilized adhering to the principles of ALARA. CT DOSE: 828.40 mGy.cm FINDINGS: Lower chest: There are bilateral lower lobe opacities right greater than left with air bronchograms. The findings could represent atelectasis or pneumonia. Clinical correlation advocated. There are eva nary artery calcifications. Liver: There are innumerable space occupying hepatic masses consistent with metastatic disease. There is pneumobilia. There is an indwelling biliary enteric stent. The liver has a cirrhotic morphology Gallbladder: There is mild gallbladder wall thickening. There is extraluminal pericholecystic gas. Spleen: Normal in size and attenuation. Pancreas: There is an 8 cm pancreatic head mass. Adrenal glands: Unremarkable. Kidneys: The unenhanced kidneys are normal in size without hydronephrosis. There is no contour deform ing renal mass lesion. No renal calculi are identified. Bowel: There is dilated colon. There is a colonic transition at the level of the splenic flexure. Dil ated small bowel loops are also evident. A colonic obstruction cannot be excluded. Peritoneum: There is increasing ascites. There is a right lower quadrant peritoneal drain. There is f ree intraperitoneal air which may be secondary to the indwelling drain. Vasculature: The abdominal aorta is normal in course and caliber. Adenopathy: There are enlarged peripancreatic and periportal lymph nodes. Pelvic viscera: The bladder, and pelvic viscera are unremarkable. Skeletal structures: No destructive osseous lesions are seen. IMPRESSION: 1. Bilateral lower lung zone opacities, atelectasis versus pneumonia 2. Multiple hepatic masses consistent with metastatic disease 3. 8 cm pancreatic head mass. Peripancreatic adenopathy 4. Increasing ascites 5. Small droplets of free intraperitoneal air. This is a nonspecific finding which could be secondary to the patient's indwelling peritoneal drainage catheter, although a perforated viscus could appear similar. 6. Dilated bowel loops with a colonic transition at the level of the splenic flexure. Ileus versus ob structing colonic lesion. 7. Examination limited due to the lack of intravenous and oral contrast ACT 112: Negative or not required by law. Electronically signed by: Lalo Jack M.D. 06/17/2020 4:23 PM
[2020-06-17] MEDS ORDERED: CEFEPIME 2,000 MG/20 ML VIAL IV STA (16:36)
[2020-06-17] MEDS ORDERED: cefTRIAXone SODIUM 1,000 MG in DEXTROSE 5% 50 ML IV SCH (16:45)
--- NOTE | 2020-06-17 16:54 | XRay Report ---
XR chest 1V portable CLINICAL HISTORY: Shortness of breath COMPARISON STUDY: 06/11/2020 FINDINGS: There are low lung volumes. The heart is borderline enlarged. There is a right-sided A-Port catheter. There is elevation right hemidiaphragm. There are basilar opacities, atelectatic versus in fectious/inflammatory[small effusions cannot be excluded IMPRESSION: Low lung volumes with basilar opacities, atelectatic versus infectious/inflammatory ACT 112: Negative or not required by law. Electronically signed by: Lalo Jack M.D. 06/17/2020 4:53 PM
[2020-06-17] MEDS ORDERED: POLYETHYLENE (MIRALAX) 17 GM PACK PO PRN (17:07)
[2020-06-17] MEDS ORDERED: GLUCAGON FOR INJ 1 MG VIAL SQ PRN (18:34)
[2020-06-17] MEDS ORDERED: DEXTROSE 50% 50 ML SYRINGE IV PRN (18:34)
[2020-06-17] MEDS ORDERED: GLUCOSE 40% GEL 15 GM TUBE PO PRN (18:34)
[2020-06-17] MEDS ORDERED: CARBOHYDRATES FOR HYPOGLYCEMIA PO PRN (18:34)
[2020-06-17] MEDS ORDERED: GLUCOSE 10 TABS/TUBE PO PRN (18:34)
--- NOTE | 2020-06-17 19:00 | Nephrology Consultation ---
Date of Consultation June 17, 2020 Assessment & Plan (1) Acute hyperkalemia: -recheck K now with BMP, mag> K 5.8, minimal change >> recommend bicarb gtt at 80 mL hourly with lasix/albumin 20 mg IV q 4h x 2 doses at 2100 and 0100; if no uop by midnight, stop these medications, repeat BMP and use insulin IV to manage potassium. care coordinated with Dr Solares >>NO kayexalate for this pt d/t ileus -hold lisinopril -currently NPO >> when taking po, needs renal and low K diet -check CK -- added to labs Present on Admission?: Yes (2) Acute renal failure: oligoanuric LOREN. baseline creatinine 0.8 mid May; presenting creatinine 2.5 on 8 AM; creatinine 3.0 on presentation, unchanged this pm. in the setting of nsaids, ACEI, metformin and minimal po with worsening cancer status >> this alone may be enough to explain his situation. suspect ischemic ATN in setting of illness; no obstruction on imaging -cannot do dialysis this late in the day at this facility due to hospital staffing; may need dialysis tomorrow though he is a poor candidate -repeat bmp pending -consider sepsis workup with lactate; follow up cultures -when taking po needs low K/renal diet -agree wtih planned matta Present on Admission?: Yes (3) Neuroendocrine carcinoma: -recommend palliative care consult to discuss goals of care >> full code but with metastatic cancer and about to start palliative CTX (4) Peritonitis: follow up pending differential and cultures; marked carcinomatosis -needs standing abtc -monitor for ileus -recommend to check intraabdominal pressure for compartment syndrome Present on Admission?: Yes History of Present Illness Reason for Consultation: hyperkalemia, renal insufficiency Requesting Physician: Dr Solares Attending Physician: Lainey Solares MD History of Present Illness 65 y/o M whom I'm asked to see for hyperkalemia and renal failure was admitted here today with abnormal blood tests, abdominal distension and N after he presented to [facility] today to start palliative chemotherapy for metastatic high grade neuroendocrine tumor. Other PMH includes DM on metformin, HTN, Barretts esophagus. He presented in late April/early May with weight loss 40 lb, jaundice > workup ultimately revealed NET with liver and pancreatic mets. on 05-15-20 he underwent ERCP/EUS with liver and pancreas bxs adn CBD stent placement. He established care with Dr Ramirez in late May and was told he has incurable disease; palliative CTX was offered, planned to start today. His baseline creatinine is 0.8 as recently as mid May. Noted on admission imaging to have ascites and in ER he underwent 5L paracentesis, with catheter in abdomen still in place and still draining (900 mL so far). He had 1.5L NS with sepsis protocol and 150 gm albumin with paracentesis. His creatinine is 3, K 6.4, Na 128; bicarb 17 on presentation. He has >11K WBC on ascitic fluid. he had ca gluconate, sodium bicarb one amp and 10 units IV insulin at about 1430. He had 2 gm cefepime at 1630. Ascitic fluid drainage rate is slowing. Pt states he feels markedly improved; acknowledges taking Advil PM hs every few days, most recently last evening; states he has hardly eaten past several days but was adherent with his meds. Allergies Allergy/AdvReac Type Severity Reaction Status Date / Time No Known Allergies Allergy Verified 06/17/20 15:58 Home Medications Home Medications Medication Instructions Recorded Confirmed Type aspirin 81 mg PO PM 05/14/20 06/17/20 History cyanocobalamin (vitamin B-12) 500 mcg PO PM 05/14/20 06/17/20 History [Vitamin B-12] lisinopril 2.5 mg PO HS 05/14/20 06/17/20 History metformin 500 mg PO QAM 05/14/20 06/17/20 History omega 4-vkk-tiu-fish oil [Fish Oil] 1 cap PO PM 05/14/20 06/17/20 History omeprazole 20 mg PO HS 05/14/20 06/17/20 History oxycodone-acetaminophen [Percocet] 1 tab PO Q6H PRN #7 tab 06/11/20 06/17/20 Rx atenolol 50 mg PO DAILY 06/17/20 06/17/20 History ondansetron HCl 8 mg PO Q8H PRN 06/17/20 06/17/20 History prochlorperazine maleate 10 mg PO Q6H PRN 08/10/20 08/10/20 History [Compazine] Patient History Medical History DM2 (diabetes mellitus, type 2) NIDDM GERD (gastroesophageal reflux disease) History of biliary stent insertion AT [place] MAY 2020 Hypertension Liver metastases Neuroendocrine carcinoma Diagnosed earlier in May 2020 Osteoarthritis Pancreatic mass Surgical History History of colonoscopy History of esophagogastroduodenoscopy (EGD) History of hernia repair INGUINAL X2 Family History Other Thyroid disease Social History Smoking Status: Former smoker Second Hand Exposure: Yes; Hx Alcohol Use: Yes (history of heavy use, quit in Dec 2019) Hx Substance Use: No Preferred Language: Tongan Communication Ability: Effective Ballet Master/Mistress Required: No Beliefs That Will Affect Care: None Current Living Situation: Spouse Other Information That Helps Us Care for You: No Feels Safe at Home: Yes Safety Concerns: Feels Safe At This Time Review of Systems Review of Systems: All systems reviewed & are unremarkable except as noted in HPI & below Respiratory: no cough and no dyspnea Gastrointestinal: + abdominal pain, + bloating and + change in bowel habits (gearuing up to move bowels) Genitourinary: no dysuria, no urinary frequency and no urinary hesitancy Neurologic: + generalized weakness Physical Exam Constitutional: well developed and + malnourished; no acute distress Eyes: EOM intact bilaterally ENMT: Ears: no external ear abnormality Nose: no external nose abnormality Mouth: + dry oral mucous membranes Neck: no nuchal rigidity Respiratory: + labored breathing (very slight, more noticeable wtih speech but no resp distress), able to speak in complete sentences and + tachypneic; does not use accessory muscles Auscultation: + diminished lung sounds Cardiovascular: Rate/Rhythm: regular rhythm and + tachycardic Extremities: no edema Gastrointestinal (Abdomen): Inspection/Auscultation: + abdomen distended and + hypoactive bowel sounds Percussion/Palpation: abdomen nontender and no guarding taut; neither firm nor soft; R paracentesis tube Musculoskeletal: Extremities: + abnormal strength (generalized weakness) Skin: no rashes, warm and dry Neurologic: reyes, fluent speech, no tremor Psychiatric: Orientation: alert and oriented x 3 Affect: + flat affect Genitourinary: no matta; minimal UOP Results & Data Vital Signs (Past 12 Hours) Vital Signs Temp Pulse Pulse Resp BP BP Pulse Ox 06/17/20 16:31 107 H 28 H 95 06/17/20 16:30 107 H 26 H 114/57 L 93 06/17/20 16:19 106 H 23 94 06/17/20 16:18 100 H 26 H 104/63 95 06/17/20 16:17 106 H 28 H 91 06/17/20 15:30 118 H 117/85 06/17/20 15:11 92 06/17/20 15:01 109 H 95 06/17/20 15:00 110 H 125/54 L 94 06/17/20 14:30 102 H 26 H 107/58 L 96 06/17/20 14:13 106 H 14 96/63 L 92 06/17/20 14:02 109 H 111 H 31 H 100/71 100/71 91 06/17/20 14:01 111 H 35 H 91 06/17/20 13:58 88 L 06/17/20 13:55 110 H 35 H 89 L 06/17/20 13:54 112 H 37 H 97/61 L 90 06/17/20 13:51 113 H 36 H 97/61 L 90 06/17/20 13:44 36.2 C L 111 H 24 90 Laboratory Results 06/17/20 14:00 BMP From 8 AM at [facility] Sodium 129, potassium 5.9, chloride 90, bicarb 16, BUN 62, creatinine 2.5, magnesium 2.6, albumin 2.7, transaminases within normal limits and bilirubin 2.0 ASCITIC FLUID 41411 WBC; <3K RBC; diff pending LDH 510 Diagnostic Findings cxr IMPRESSION: Low lung volumes with basilar opacities, atelectatic versus infectious/inflammatory CT abd/pelvis non con 1. Bilateral lower lung zone opacities, atelectasis versus pneumonia 2. Multiple hepatic masses consistent with metastatic disease 3. 8 cm pancreatic head mass. Peripancreatic adenopathy 4. Increasing ascites 5. Small droplets of free intraperitoneal air. This is a nonspecific finding which could be secondary to the patient's indwelling peritoneal drainage catheter, although a perforated viscus could appear similar. 6. Dilated bowel loops with a colonic transition at the level of the splenic flexure. Ileus versus obstructing colonic lesion. 7. Examination limited due to the lack of intravenous and oral contrast (1) Acute renal failure Acute renal failure type: unspecified Qualified Code(s): N17.9 - Acute kidney failure, unspecified
[2020-06-17 19:06] LABS: Albumin Level 2.1 gm/dl (3.4-5.0); BUN Creatinine Ratio 22.9 (10-20); Calcium 8.9 mg/dl (8.5-10.1); Creatinine Clr Calc Pharmacy 25.6 ml/min; Est GFR (African American) 24.3; Magnesium 2.6 mg/dl (1.8-2.4); Potassium 5.8 mmol/L (3.5-5.1)
[2020-06-17 19:12] LABS: Eosinophils, Fluid 0 %; Lymphocytes, Fluid 4 %; Mono,Macrophage,Mesothelial 1 %; Neutrophils, Fluid 95 %
[2020-06-17 19:26] LABS: Base Excess ABG -2.5 mEq/L (-9-1.8); HCO3 ABG 21 mmol/L (19-24); Oxygen Saturation ABG 95.9 % (90-95); PCO2 ABG 32 mmHg (35-46); PO2 ABG 78 mmHg (80-95); pH ABG 7.44 (7.35-7.45)
[2020-06-17 19:27] LABS: Allen Test Pos (Pos)
[2020-06-17] MEDS ORDERED: CEFEPIME CONSULT ACTIVE PRN (20:05)
--- NOTE | 2020-06-17 20:09 | Communication Note ---
Date of Service: June 17, 2020 CLARIFICATION: IF No more than 100 mL UOP in response to lasix and fluids dosed from 2030-midnight, then recommend stopping both bicarb gtt and lasix; further per my consult note from earlier this evening
[2020-06-17] MEDS: ONDANSETRON INJ 2 MG/ML 2 ML VIAL IV PRN (20:10)
[2020-06-17] MEDS: SODIUM BICARBONATE 8.4% 150 MEQ in DEXTROSE 5% 1,000 ML IV SCH ×2 (20:24→22:25)
[2020-06-17] MEDS ORDERED: Nursing to Pharmacy Communication SCH (20:30)
[2020-06-17] MEDS ORDERED: INSULIN ASPART 100 UNITS/ML 3 ML PEN SC SCH (21:00)
[2020-06-17] MEDS ORDERED: ALBUMIN 25% 50 ML with FUROSEMIDE 20 MG IV SCH (21:00)
[2020-06-17 22:00] LABS: BUN Creatinine Ratio 23.3 (10-20); Calcium 8.3 mg/dl (8.5-10.1); Creatinine Clr Calc Pharmacy 25.1 ml/min; Est GFR (African American) 23.7; Est GFR (Non-African American) 20.5; Potassium 6.1 mmol/L (3.5-5.1)
[2020-06-17] MEDS ORDERED: DEXTROSE 50% 50 ML SYRINGE IV STA (22:03)
[2020-06-17] MEDS ORDERED: INSULIN HUMAN REGULAR PER UNIT 10 UNITS in SYRINGE 9.9 ML IV STA (22:09)
[2020-06-17] MEDS ORDERED: SODIUM BICARBONATE 8.4% 150 MEQ in DEXTROSE 5% 1,000 ML IV SCH (22:30)
[2020-06-18] MEDS: INSULIN ASPART 100 UNITS/ML 3 ML PEN SC SCH ×4 (00:13→18:40)
[2020-06-18 00:31] LABS: Appearance Urine Slightly Cloudy (Clear); Color Urine Brown; Protein Urine Positive (Negative); Specific Gravity Urine 1.027 (1.000-1.030); Sulfosalicylic Acid Urine Positive (Negative)
[2020-06-18 00:34] LABS: Bacteria Urine 1+ (Negative); Calcium Oxalate Crystals Urine Present (None Prsent); WBC Urine 0-5 /hpf (0-5)
[2020-06-18 01:30] LABS: BUN Creatinine Ratio 22.4 (10-20); Calcium 8.6 mg/dl (8.5-10.1); Creatinine Clr Calc Pharmacy 23.4 ml/min; Est GFR (African American) 21.8; Est GFR (Non-African American) 18.8
[2020-06-18] MEDS ORDERED: DEXTROSE 50% 50 ML SYRINGE IV STA ×2 (01:50→07:00)
[2020-06-18] MEDS ORDERED: INSULIN HUMAN REGULAR PER UNIT 10 UNITS in SYRINGE 9.9 ML IV STA ×2 (01:57→07:06)
[2020-06-18 05:59] LABS: Hemoglobin 12.4 g/dL (14.0-18.0); Mean Corpuscular Hemoglobin 30.9 pg (25-34); Mean Corpuscular Hgb Conc 33.5 g/dL (32-36); Mean Corpuscular Volume 92.3 fL (80-100); Mean Platelet Volume 10.3 fL (7.4-10.4); Platelet Count 505 K/uL (130-400); RDW Coefficient of Variation 14.6 % (11.5-14.5); RDW Standard Deviation 48.8 fL (36.4-46.3); Red Blood Count 4.01 M/uL (4.7-6.1); White Blood Count 11.15 K/uL (4.8-10.8)
--- NOTE | 2020-06-18 06:05 | Electrocardiogram Report ---
Test Reason : Blood Pressure : / mmHG Vent. Rate : 111 BPM Atrial Rate : 111 BPM P-R Int : 148 ms QRS Dur : 076 ms QT Int : 322 ms P-R-T Axes : 017 062 025 degrees QTc Int : 437 ms Sinus tachycardia Otherwise normal ECG When compared with ECG of 14-MAY-2020 09:31, Vent. rate has increased BY 40 BPM Confirmed by Nathaniel Mcdonald ([id number]) on 06/18/2020 6:04:52 AM Referred By: REFERRED SELF Confirmed By:Nathaniel Mcdonald
[2020-06-18 06:30] LABS: Albumin Level 1.9 gm/dl (3.4-5.0); BUN Creatinine Ratio 23.2 (10-20); Calcium 7.7 mg/dl (8.5-10.1); Creatinine Clr Calc Pharmacy 23.4 ml/min; Est GFR (African American) 21.8; Est GFR (Non-African American) 18.8; Potassium 5.9 mmol/L (3.5-5.1)
[2020-06-18 06:35] LABS: Albumin Globulin Ratio 0.4 (0.9-2); Bilirubin,Total 1.4 mg/dl (0.2-1); Globulin 4.4 gm/dl (2.5-4.0); Total Protein 6.3 gm/dl (6.4-8.2)
[2020-06-18] MEDS ORDERED: CALCIUM GLUCONATE 10% 1,000 MG in SODIUM CHLORIDE 0.9% 50 ML IV STA ×2 (07:00→16:12)
--- NOTE | 2020-06-18 07:09 | Ultrasound Report ---
US abdomen complete HISTORY: Study is limited due to overlying bowel content. neuroendocrine tumor with mets to liver, A RF. COMPARISON: None. FINDINGS: Pancreas: Poorly seen Liver: Several nodular hyperechoic nodules measuring up to 3.5 cm. Possibly a hepatic metastatic dise ase is considered. Gallbladder: Debris-filled. CBD: 7.5 mm Kidneys: No hydronephrosis. Spleen: Normal in size. Aorta: Normal in caliber. IVC: Patent. IMPRESSION: 1. Diffuse hepatic metastatic disease. 2. Mild perihepatic and to a lesser extent abdominal ascites. 3. Debris-filled gallbladder with mild prominence of the common duct at 7.5 mm. ACT 112: Negative or not required by law. The above report was generated using voice recognition software. It may contain grammatical, syntax or spelling errors. Electronically signed by: Kendrick Sykes M.D. 06/18/2020 7:08 AM
--- NOTE | 2020-06-18 08:05 | Surgery Consultation ---
Date of Consultation June 18, 2020 Assessment & Plan (1) Abnormal CT of the abdomen: At this time there is no surgical intervention and would not consider any surgery in the future the patient is in palliative care no chemotherapy is contemplated at this time I suspect that this is an ileus rather than obstruction in the splenic flexure At this time we will not start oral intake until the patient has some GI function returning Present on Admission?: Yes History of Present Illness Reason for Consultation: Small bowel obstruction versus ileus Attending Physician: Tuyet Rincon MD History of Present Illness This 65-year-old gentleman with metastatic pancreatic cancer with liver metastasis recently underwent an a port placement in anticipation for chemotherapy his general condition deteriorated chemotherapy was never started had a biliary stent placed and developed more ongoing ascites came in after he was nauseated yesterday with increased abdominal distention underwent a paracentesis and drained approximately 5 L catheter was left in and he continues to drain at a CT scan when he came in shows possibility of an ileus versus a bowel obstruction in the splenic flexure and we were asked to see him regarding this Allergies Allergy/AdvReac Type Severity Reaction Status Date / Time No Known Allergies Allergy Verified 06/17/20 15:58 Home Medications Home Medications Medication Instructions Recorded Confirmed Type aspirin 81 mg PO PM 05/14/20 06/17/20 History cyanocobalamin (vitamin B-12) 500 mcg PO PM 05/14/20 06/17/20 History [Vitamin B-12] lisinopril 2.5 mg PO HS 05/14/20 06/17/20 History metformin 500 mg PO QAM 05/14/20 06/17/20 History omega 1-ygx-xax-fish oil [Fish Oil] 1 cap PO PM 05/14/20 06/17/20 History omeprazole 20 mg PO HS 05/14/20 06/17/20 History oxycodone-acetaminophen [Percocet] 1 tab PO Q6H PRN #7 tab 06/11/20 06/17/20 Rx atenolol 50 mg PO DAILY 06/17/20 06/17/20 History ondansetron HCl 8 mg PO Q8H PRN 06/17/20 06/17/20 History prochlorperazine maleate 10 mg PO Q6H PRN 06/17/20 06/17/20 History [Compazine] Patient History Medical History DM2 (diabetes mellitus, type 2) NIDDM GERD (gastroesophageal reflux disease) History of biliary stent insertion AT [place] MAY 2020 Hypertension Liver metastases Neuroendocrine carcinoma Diagnosed earlier in May 2020 Osteoarthritis Pancreatic mass Surgical History History of colonoscopy History of esophagogastroduodenoscopy (EGD) History of hernia repair INGUINAL X2 Family History Other Thyroid disease Social History Smoking Status: Former smoker Second Hand Exposure: Yes; Hx Alcohol Use: Yes (history of heavy use, quit in Dec 2019) Hx Substance Use: No Preferred Language: Guatemalan Communication Ability: Effective Component Engineer Required: No Beliefs That Will Affect Care: None Current Living Situation: Spouse Other Information That Helps Us Care for You: No Feels Safe at Home: Yes Safety Concerns: Feels Safe At This Time Review of Systems Review of Systems: All systems reviewed & are unremarkable except as noted in HPI & below Patient states he feels much better this morning and first came in last night his belly he is is fine and has no pain at this time Physical Exam Physical Exam: Patient is alert coherent Constitutional: WD/WN, vitals as above + ill appearing, + cachectic and + frail appearing Eyes: PERRL, conjunctivae normal, anicteric sclerae Neck: trachea midline, no thyromegaly Respiratory: normal respiratory effort, lungs clear to auscultation Cardiovascular: Rate/Rhythm: regular rate Chest (Breasts): Additional Comments: A port in the right anterior chest no sign of infection easily palpable Gastrointestinal (Abdomen): Inspection/Auscultation: + abdomen distended Paracentesis catheter is in the right lower quadrant right flank area draining serous appearing fluid nonbloody The abdomen is distended there is no localized tenderness no guarding Results & Data Vital Signs (Past 12 Hours) Vital Signs Temp Pulse Resp BP BP Pulse Ox 06/18/20 07:23 102/53 L 06/18/20 07:15 36.8 C 108 H 20 88/53 L 92 06/18/20 03:43 36.8 C 108 H 21 99/51 L 92 06/17/20 23:33 36.4 C L 109 H 22 98/52 L 91 06/17/20 20:15 36.7 C 108 H 18 95/[address] scan and lab was reviewed PG Care Time/CCT Total # of Minutes Spent Total Time Spent with Patient: Total time spent is greater than 50% in coordination of care (as documented) at patient's floor/unit and/or counseling patient: Coding Level of Care Code 86067 Inpt Consult Level [address] of the abdomen R93.5
--- NOTE | 2020-06-18 08:49 | Nephrology Progress Note ---
Date of Service June 18, 2020 Assessment & Plan (1) Acute hyperkalemia: K has been managed medically so far; need to use means to eliminate it from body not just push into cells. Dialysis not a workable option here until he discusses overall health picture with palliative; he is not a usp dialysis candidate due to metastatic cancer. We could consider in an extremely urgent situation temporary dialysis in hospital to stabilize K in order to have better setting to discuss goals of care with palliative team and family; however will continue to try medical means first. Truthfully I do not recommend even temporary dialysis here except in the most exceptional circumstances. this logic was discussed with and patient >> explained he is not a candidate even for palliative chemo and that dialysis is similar. do not believe dialysis would improve quality of time he has left; not clear to me it will extend quantity either. -will star bicarb gtt again at 80 mL hourly and give lasix/albumin 20 mg IV q 4h and follow uop / volume status -care coordinated with Dr Rincon >>NO kayexalate for this pt d/t ileus -hold lisinopril -currently NPO >> when taking po, needs renal and low K diet -CK ordered but not added - pt is difficult stick; will get with next labs -recheck bmp with CK and lactate and uric acid at 1400 -- lactate not being followed for sepsis but to explain K, as measure of dying tissue (2) Acute renal failure: oligoanuric LOREN. baseline creatinine 0.8 mid May; presenting creatinine 2.5 on 8-10-20 AM; creatinine 3.0 on presentation, minimally changed today at 3.2. in the setting of nsaids, ACEI, metformin and minimal po with worsening cancer status, relative hypotension >> this alone may be enough to explain his situation. suspect ischemic ATN in setting of illness; no obstruction on imaging -with his advanced cancer this patient is not a candidate for dialysis any more than he is a candidate for palliative chemotherapy >> see above; may consider temporary dialysis in extreme situation but do not favor it and would need very clear reasoning and parameters as above -repeat bmp pending this afternoon -follow up cultures; impression is more advanced dehydration and worsening cancer burden than sepsis -if/when taking po needs low K/renal diet (3) Neuroendocrine carcinoma: -follow up pending palliative care consult to discuss goals of care >> full code but with metastatic cancer not currently a candidate even for palliative CTX or dialysis (4) Peritonitis: follow up pending differential and cultures; marked carcinomatosis noted on ascitic fluid -on cefepime -monitor for ileus -recommend to check intraabdominal pressure for compartment syndrome -- though if diagnosed would need non surgical mgt options if any Admission and Anticipated Discharge Date Admission Date: June 17, 2020 Subjective no pain, no sob; alert and interactive. at bedside and involved in discussion. + hiccups. Review of Systems Review of Systems: All systems reviewed & are unremarkable except as noted in HPI & below Physical Exam Constitutional: well developed and + malnourished; no acute distress 0n 02NC Eyes: EOM intact bilaterally ENMT: Ears: no external ear abnormality Nose: no external nose abnormality Mouth: + dry oral mucous membranes Neck: no nuchal rigidity Respiratory: + labored breathing (very slight, more noticeable wtih speech but no resp distress) and able to speak in complete sentences; does not use accessory muscles Auscultation: + diminished lung sounds Cardiovascular: Rate/Rhythm: regular rhythm and + tachycardic Extremities: no edema Gastrointestinal (Abdomen): Inspection/Auscultation: + abdomen distended and + hypoactive bowel sounds Percussion/Palpation: abdomen nontender and no guarding peritoneal catheter Musculoskeletal: Extremities: + abnormal strength (generalized weakness) Skin: no rashes, warm and dry Neurologic: reyes, fluent speech, generalized weakness Psychiatric: Orientation: alert and oriented x 3 Affect: + flat affect Genitourinary: matta with scant urine Results & Data ([facility]) Vital Signs (Past 12 Hours) Vital Signs Temp Pulse Resp BP BP Pulse Ox 06/18/20 07:23 102/53 L 06/18/20 07:15 36.8 C 108 H 20 88/53 L 92 06/18/20 03:43 36.8 C 108 H 21 99/51 L 92 06/17/20 23:33 36.4 C L 109 H 22 98/52 L 91 Laboratory Results 06/18/20 05:32 06/18/20 05:32 (1) Acute renal failure Acute renal failure type: unspecified Qualified Code(s): N17.9 - Acute kidney failure, unspecified
[2020-06-18] MEDS ORDERED: STAT IV STA (09:21)
[2020-06-18] MEDS ORDERED: ALBUMIN 25% 50 ML with FUROSEMIDE 20 MG IV SCH (09:30)
[2020-06-18] MEDS: SODIUM BICARBONATE 8.4% 150 MEQ in DEXTROSE 5% 1,000 ML IV SCH (10:11)
[2020-06-18] MEDS: ALBUMIN 25% 50 ML with FUROSEMIDE 20 MG IV SCH ×4 (10:12→22:29)
--- NOTE | 2020-06-18 10:55 | Hospitalist Progress Note ---
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 Paracentesis performed in ED with 5 L drainage and peritoneal catheter left in place. Peritoneal fluid with >11,000 wbcs and growth of moderate gram positive cocci -final culture pending Peritoneal catheter has not been draining much. Will get abd USS. Consider removal Appreciate GI evaluation Got albumin with large vol paracentesis Continue albumin with lasix as below Currently on IV cefepime for SBP. Vancomycin added Follow up outstanding cultures (3) Neuroendocrine carcinoma: (4) Liver metastases: Diagnosed 1 month ago with high-grade neuroendocrine tumor with metastatic incurable disease Was due to start chemotherapy on 06/17/20 date of admission but due to ascites and acute renal failure, was sent to [facility] for paracentesis Admitting Provider discussed case with Dr. Ramirez, who stated that patient is not a candidate for palliative chemo at this time with ARF Discussed with over the phone. We discussed his poor prognosis considering decompensation, LOREN, sepsis She is coming in for family meeting with Palliative care (5) Acute hyperkalemia: (6) Acute renal failure: Cr elevated to 3 (0.8 last month), K of 6.4, bicarb of 17 on admission Worsening renal function. Cr is 3.23 this AM. Still hyperkalemic Discussed with Dr Ayala Continue bicarb drip. Continue albumin + lasix 20mg q4h and monitor labs Continue temporizing measures for hyperkalemia Will follow up goals of care discussion with family (7) Abnormal CT of the abdomen: (8) Ileus: CT abd pelvis showed ileus vs obstructing colonic lesion Surgical evaluation noted. Patient is not a surgical candidate. Medical management for now NPO for now (9) DM2 (diabetes mellitus, type 2): Hold home agents SSI while in-patient BSG AC HS (10) GERD (gastroesophageal reflux disease): Continue PPI DVT Ppx: Hep sq CODE STATUS: Patient wants to remain full code for now until further discussion with his and palliative team Admission and Anticipated Discharge Date Admission Date: June 17, 2020 Subjective Patient seen and examined Reported some nausea early this AM No vomiting. Denied abd pain. Report abd distention is better than it was on admission Yet to have BM. Reported he passed flatus. Denied any fevers, chills Denied any headache, dizziness Reports fatigue Physical Exam Constitutional: + ill appearing; no acute distress Eyes: PERRL, conjunctivae normal, anicteric sclerae ENMT: Dry oral mucosa Respiratory: normal respiratory effort; no respiratory distress Auscultation: + diminished lung sounds (Lung bases); no crackles Cardiovascular: RRR, no murmur, no edema Gastrointestinal (Abdomen): Inspection/Auscultation: + abdomen distended; + abnormal bowel sounds Percussion/Palpation: abdomen nontender Peritoneal catheter in situ Neurologic: PERRL, EOMI, accommodation nl, no face palsy, no dysarthria Psychiatric: A+Ox3, euthymic affect Results & Data Results & Data ([facility]) Vital Signs (Past 12 Hours) Vital Signs Temp Pulse Resp BP BP Pulse Ox 06/18/20 07:23 102/53 L 06/18/20 07:15 36.8 C 108 H 20 88/53 L 92 06/18/20 03:43 36.8 C 108 H 21 99/51 L 92 06/17/20 23:33 36.4 C L 109 H 22 98/52 L 91 Laboratory Results Laboratory Results - last 24 hr 06/17/20 06/17/20 06/17/20 14:00 14:00 14:00 WBC 14.53 H RBC 4.31 L Hgb 13.6 L POC Hgb Hct 39.9 L POC Hct MCV 92.6 MCH 31.6 MCHC 34.1 RDW Std Deviation 49.4 H RDW Coeff of Isabelle 14.4 Plt Count 666 H MPV 10.3 Immature Gran % (Auto) 0.5 Neut % (Auto) 87.5 Lymph % (Auto) 4.5 [facility] % (Auto) 7.4 Eos % (Auto) 0.0 Baso % (Auto) 0.1 Neut # (Auto) 12.72 H Lymph # (Auto) 0.66 L [facility] # (Auto) 1.07 H Eos # (Auto) 0.00 Baso # (Auto) 0.01 Immature Gran # (Auto) 0.07 H PT 11.9 INR 1.1 ABG pH ABG pCO2 ABG pO2 ABG HCO3 ABG O2 Saturation ABG Base Excess Ron Test Barometric Pressure Oxygen Given POC Sodium Sodium 128 L POC Potassium Potassium 6.4 H* POC Chloride Chloride 95 L Carbon Dioxide 17 L POC Total CO2 Anion Gap 17.0 H POC Anion Gap POC BUN BUN 63 H Creatinine 3.01 H POC Creatinine Est Cr Clr Drug Dosing Not Reportable Est GFR ( Amer) 23.7 Est GFR (Non-Af Amer) 20.5 BUN/Creatinine Ratio 21.0 H Glucose 194 H POC Glucose (other) Lactate Calcium 9.6 POC Ioniz Calcium Mary Ellen Magnesium Total Bilirubin 1.6 H AST 137 H ALT 60 Alkaline Phosphatase 137 H Total Creatine Kinase NT-Pro-B Natriuret Pep Total Protein 7.6 Albumin 1.9 L Globulin 5.7 H Albumin/Globulin Ratio 0.3 L Lipase 90 Urine Color Urine Appearance Urine pH Ur Specific [place] Urine Protein Urine Glucose (UA) Urine Ketones Urine Blood Urine Nitrite Urine Bilirubin Urine Urobilinogen Ur Leukocyte Esterase Urine RBC Urine WBC Ur Epithelial Cells Calcium Oxalate Crystal Urine Bacteria Fluid Neutrophils % Fluid Lymphocytes % Fluid Eosinophils % Fluid Meso/Macro/Baylor % Peritoneal Color Peritoneal Appearance Peritoneal WBC Peritoneal RBC Peritoneal Tot Protein Peritoneal Albumin Peritoneal LDH Peritoneal Glucose Peritoneal Amylase Peritoneal Lipase Peritoneal Triglycerid 06/17/20 06/17/20 06/17/20 14:08 15:17 15:17 WBC RBC Hgb POC Hgb 14.6 Hct POC Hct 43 MCV MCH MCHC RDW Std Deviation RDW Coeff of Isabelle Plt Count MPV Immature Gran % (Auto) Neut % (Auto) Lymph % (Auto) [facility]lor % (Auto) Eos % (Auto) Baso % (Auto) Neut # (Auto) Lymph # (Auto) [facility]lor # (Auto) Eos # (Auto) Baso # (Auto) Immature Gran # (Auto) PT INR ABG pH ABG pCO2 ABG pO2 ABG HCO3 ABG O2 Saturation ABG Base Excess Ron Test Barometric Pressure Oxygen Given POC Sodium 128 L Sodium POC Potassium 6.4 H* Potassium POC Chloride 98 L Chloride Carbon Dioxide POC Total CO2 19 L Anion Gap POC Anion Gap 18.0 POC BUN 54 H BUN Creatinine POC Creatinine 3.0 H Est Cr Clr Drug Dosing Est GFR ( Amer) Est GFR (Non-Af Amer) BUN/Creatinine Ratio Glucose POC Glucose (other) 196 H Lactate Calcium POC Ioniz Calcium Mary Ellen 1.06 L Magnesium Total Bilirubin AST ALT Alkaline Phosphatase Total Creatine Kinase NT-Pro-B Natriuret Pep Total Protein Albumin Globulin Albumin/Globulin Ratio Lipase Urine Color Urine Appearance Urine pH Ur Specific [place] Urine Protein Urine Glucose (UA) Urine Ketones Urine Blood Urine Nitrite Urine Bilirubin Urine Urobilinogen Ur Leukocyte Esterase Urine RBC Urine WBC Ur Epithelial Cells Calcium Oxalate Crystal Urine Bacteria Fluid Neutrophils % 95 Fluid Lymphocytes % 4 Fluid Eosinophils % 0 Fluid Meso/Macro/Baylor % 1 Peritoneal Color YELLOW Peritoneal Appearance CLOUDY Peritoneal WBC 39397 H Peritoneal RBC < 3000 Peritoneal Tot Protein 2.6 Peritoneal Albumin Peritoneal LDH 510 Peritoneal Glucose 110 Peritoneal Amylase 8 Peritoneal Lipase 20 Peritoneal Triglycerid 32 06/17/20 06/17/20 06/17/20 18:36 19:08 19:08 WBC RBC Hgb POC Hgb Hct POC Hct MCV MCH MCHC RDW Std Deviation RDW Coeff of Isabelle Plt Count MPV Immature Gran % (Auto) Neut % (Auto) Lymph % (Auto) Baylor % (Auto) Eos % (Auto) Baso % (Auto) Neut # (Auto) Lymph # (Auto) [facility]lor # (Auto) Eos # (Auto) Baso # (Auto) Immature Gran # (Auto) PT INR ABG pH 7.44 ABG pCO2 32 L ABG pO2 78 L ABG HCO3 21 ABG O2 Saturation 95.9 H ABG Base Excess -2.5 Ron Test Pos Barometric Pressure 730.7 Oxygen Given 2 LITERS POC Sodium Sodium 131 L POC Potassium Potassium 5.8 H POC Chloride Chloride 98 Carbon Dioxide 21 POC Total CO2 Anion Gap 12.0 H POC Anion Gap POC BUN BUN 68 H Creatinine 2.95 H POC Creatinine Est Cr Clr Drug Dosing 25.6 Est GFR ( Amer) 24.3 Est GFR (Non-Af Amer) 21.0 BUN/Creatinine Ratio 22.9 H Glucose 140 H POC Glucose (other) Lactate 2.6 H* Calcium 8.9 POC Ioniz Calcium Mary Ellen Magnesium 2.6 H Total Bilirubin AST ALT Alkaline Phosphatase Total Creatine Kinase NT-Pro-B Natriuret Pep 1603 H Total Protein Albumin 2.1 L Globulin Albumin/Globulin Ratio Lipase Urine Color Urine Appearance Urine pH Ur Specific [place] Urine Protein Urine Glucose (UA) Urine Ketones Urine Blood Urine Nitrite Urine Bilirubin Urine Urobilinogen Ur Leukocyte Esterase Urine RBC Urine WBC Ur Epithelial Cells Calcium Oxalate Crystal Urine Bacteria Fluid Neutrophils % Fluid Lymphocytes % Fluid Eosinophils % Fluid Meso/Macro/Baylor % Peritoneal Color Peritoneal Appearance Peritoneal WBC Peritoneal RBC Peritoneal Tot Protein Peritoneal Albumin Peritoneal LDH Peritoneal Glucose Peritoneal Amylase Peritoneal Lipase Peritoneal Triglycerid 06/17/20 06/17/20 06/17/20 19:11 21:18 21:18 WBC RBC Hgb POC Hgb Hct POC Hct MCV MCH MCHC RDW Std Deviation RDW Coeff of Isaeblle Plt Count MPV Immature Gran % (Auto) Neut % (Auto) Lymph % (Auto) Baylor % (Auto) Eos % (Auto) Baso % (Auto) Neut # (Auto) Lymph # (Auto) [facility]lor # (Auto) Eos # (Auto) Baso # (Auto) Immature Gran # (Auto) PT INR ABG pH ABG pCO2 ABG pO2 ABG HCO3 ABG O2 Saturation ABG Base Excess Ron Test Barometric Pressure Oxygen Given POC Sodium Sodium 130 L POC Potassium Potassium 6.1 H* POC Chloride Chloride 99 Carbon Dioxide 20 L POC Total CO2 Anion Gap 11.0 POC Anion Gap POC BUN BUN 70 H Creatinine 3.01 H POC Creatinine Est Cr Clr Drug Dosing 25.1 Est GFR ( Amer) 23.7 Est GFR (Non-Af Amer) 20.5 BUN/Creatinine Ratio 23.3 H Glucose 164 H POC Glucose (other) Lactate 2.3 H* Calcium 8.3 L POC Ioniz Calcium Mary Ellen Magnesium Total Bilirubin AST ALT Alkaline Phosphatase Total Creatine Kinase 472 H NT-Pro-B Natriuret Pep Total Protein Albumin Globulin Albumin/Globulin Ratio Lipase Urine Color Urine Appearance Urine pH Ur Specific [place] Urine Protein Urine Glucose (UA) Urine Ketones Urine Blood Urine Nitrite Urine Bilirubin Urine Urobilinogen Ur Leukocyte Esterase Urine RBC Urine WBC Ur Epithelial Cells Calcium Oxalate Crystal Urine Bacteria Fluid Neutrophils % Fluid Lymphocytes % Fluid Eosinophils % Fluid Meso/Macro/Baylor % Peritoneal Color Peritoneal Appearance Peritoneal WBC Peritoneal RBC Peritoneal Tot Protein Peritoneal Albumin Peritoneal LDH Peritoneal Glucose Peritoneal Amylase Peritoneal Lipase Peritoneal Triglycerid 06/18/20 06/18/20 06/18/20 00:08 01:02 05:32 WBC 11.15 H RBC 4.01 L Hgb 12.4 L POC Hgb Hct 37.0 L POC Hct MCV 92.3 MCH 30.9 MCHC 33.5 RDW Std Deviation 48.8 H RDW Coeff of Isabelle 14.6 H Plt Count 505 H MPV 10.3 Immature Gran % (Auto) Neut % (Auto) Lymph % (Auto) [facility] % (Auto) Eos % (Auto) Baso % (Auto) Neut # (Auto) Lymph # (Auto) [facility] # (Auto) Eos # (Auto) Baso # (Auto) Immature Gran # (Auto) PT INR ABG pH ABG pCO2 ABG pO2 ABG HCO3 ABG O2 Saturation ABG Base Excess Ron Test Barometric Pressure Oxygen Given POC Sodium Sodium 130 L POC Potassium Potassium 6.0 H POC Chloride Chloride 98 Carbon Dioxide 22 POC Total CO2 Anion Gap 10.0 POC Anion Gap POC BUN BUN 72 H Creatinine 3.23 H POC Creatinine Est Cr Clr Drug Dosing 23.4 Est GFR ( Amer) 21.8 Est GFR (Non-Af Amer) 18.8 BUN/Creatinine Ratio 22.4 H Glucose 154 H POC Glucose (other) Lactate Calcium 8.6 POC Ioniz Calcium Mary Ellen Magnesium Total Bilirubin AST ALT Alkaline Phosphatase Total Creatine Kinase NT-Pro-B Natriuret Pep Total Protein Albumin Globulin Albumin/Globulin Ratio Lipase Urine Color Brown Urine Appearance Slightly Cloudy A Urine pH Ur Specific [place] 1.027 Urine Protein Positive H Urine Glucose (UA) Urine Ketones Urine Blood Urine Nitrite Urine Bilirubin Urine Urobilinogen Ur Leukocyte Esterase Urine RBC 5-10 H Urine WBC 0-5 Ur Epithelial Cells 10-20 H Calcium Oxalate Crystal Present A Urine Bacteria 1+ H Fluid Neutrophils % Fluid Lymphocytes % Fluid Eosinophils % Fluid Meso/Macro/Baylor % Peritoneal Color Peritoneal Appearance Peritoneal WBC Peritoneal RBC Peritoneal Tot Protein Peritoneal Albumin Peritoneal LDH Peritoneal Glucose Peritoneal Amylase Peritoneal Lipase Peritoneal Triglycerid 06/18/20 06/18/20 05:32 10:38 WBC RBC Hgb POC Hgb Hct POC Hct MCV MCH MCHC RDW Std Deviation RDW Coeff of Isabelle Plt Count MPV Immature Gran % (Auto) Neut % (Auto) Lymph % (Auto) [facility] % (Auto) Eos % (Auto) Baso % (Auto) Neut # (Auto) Lymph # (Auto) [facility] # (Auto) Eos # (Auto) Baso # (Auto) Immature Gran # (Auto) PT INR ABG pH ABG pCO2 ABG pO2 ABG HCO3 ABG O2 Saturation ABG Base Excess Ron Test Barometric Pressure Oxygen Given POC Sodium Sodium 134 L POC Potassium Potassium 5.9 H POC Chloride Chloride 99 Carbon Dioxide 23 POC Total CO2 Anion Gap 12.0 H POC Anion Gap POC BUN BUN 75 H Creatinine 3.23 H POC Creatinine Est Cr Clr Drug Dosing 23.4 Est GFR ( Amer) 21.8 Est GFR (Non-Af Amer) 18.8 BUN/Creatinine Ratio 23.2 H Glucose 135 H POC Glucose (other) Lactate Calcium 7.7 L POC Ioniz Calcium Mary Ellen Magnesium Total Bilirubin 1.4 H AST 765 H ALT 125 H Alkaline Phosphatase 97 Total Creatine Kinase NT-Pro-B Natriuret Pep Total Protein 6.3 L Albumin 1.9 L Globulin 4.4 H Albumin/Globulin Ratio 0.4 L Lipase Urine Color Urine Appearance Urine pH Ur Specific [place] Urine Protein Urine Glucose (UA) Urine Ketones Urine Blood Urine Nitrite Urine Bilirubin Urine Urobilinogen Ur Leukocyte Esterase Urine RBC Urine WBC Ur Epithelial Cells Calcium Oxalate Crystal Urine Bacteria Fluid Neutrophils % Fluid Lymphocytes % Fluid Eosinophils % Fluid Meso/Macro/Baylor % Peritoneal Color Peritoneal Appearance Peritoneal WBC Peritoneal RBC Peritoneal Tot Protein Peritoneal Albumin 1.0 Peritoneal LDH Peritoneal Glucose Peritoneal Amylase Peritoneal Lipase Peritoneal Triglycerid (1) Acute renal failure Acute renal failure type: unspecified Qualified Code(s): N17.9 - Acute kidney failure, unspecified
--- NOTE | 2020-06-18 11:09 | Gastrointestinal Consultation ---
Date of Consultation June 18, 2020 Assessment & Plan (1) Neuroendocrine carcinoma: (2) Liver metastases: (3) Sepsis: (4) Peritonitis: (5) Acute renal failure: Pt is a 65 y/o male w neuroendocrine tumor of pancreas w liver mets s/p biliary stent placement for obstructive jaundice, currently admitted with sepsis, ARF, bowel obstructive vs ileus w transition point seen at splenic flexure, SBP. - Continue Cefepime for SBP treatment - Defer antibx management for possible pneumonia to primary team - Will obtain repeat U/S to re-eval for possible ascites accumulation. Peritoneal catheter drain in place at RLQ w small amt of drainage. Would favor eventually DC'ing drain as it can be a route for infection. - Discussed poor prognosis with pt; Palliative care consulted - Nephrology following, appreciate recx. Supervising Physician Co-Signing Physician Notes Attending attestation I have seen, examined this patient, and agree with the findings and above by our mid-level provider ARELI Mercado, with the following additions This is an unfortunate gentleman with metastatic neuroendocrine pancreatic lesion with resultant ascites, partial gastric outlet obstruction, who was admitted with abdominal distention. Imaging suggests an ileus with no overt transition point with colon and small bowel at the upper limits of normal. He does have ascites that was drained with an indwelling catheter left, that appears to be infected and he is on appropriate antibiotics for that right now. He is got subsequent renal failure and failure to thrive, with a heavy burden of disease. Long-term short-term option should be discussed. Given the fact that he has moderate to mild ascites, I would suggest an NG tube placement to see if that improves some of his distention and makes him more comfortable. History of Present Illness Reason for Consultation: Neuroendocrine tumor w liver mets; SBP Requesting Physician: Dr. Tuyet Rinocn Attending Physician: Dr. Merritt Allred History of Present Illness Pt is a 65 y/o male admitted yesterday w abd pain, distension, nausea. He was admitted at [facility] last month w obstructive jaundice. EUS/ERCP performed w metal stent placement in biliary duct, needle bx of pancreas and liver masses showed neuroendocrine tumor. He was seen by Dr. Ramirez (Heme/Onc) and planned for palliative chemotherapy w Cisplatin/Etoposide, however this was held yesterday and pt referred to ED given above symptoms. In ED, he had 5L ascites removed via paracentesis by Dr. Khan. Fluid analysis showed peritoneal WBC >11K, 95% neutrophils. Peritoneal catheter drain was left in place, currently open to gravity and w <200ml drainage noted in bag. His admission labs also showed signs of ARF, hyperkalemia (Nephrology following), lactic acidosis. CT abd/pelvis showed signs of lower lungs atelectasis vs pneumonia, tumor burden in pancreas and liver, dilated colon w transition point at splenic flexure. He reports last BM was 2 days ago, is passing flatus. He was evaluted by Surgery - not surgical plans, felt he may have ileus rather than bowel obstruction. He is taking Percocet at home. Allergies Allergy/AdvReac Type Severity Reaction Status Date / Time No Known Allergies Allergy Verified 06/17/20 15:58 Home Medications Home Medications Medication Instructions Recorded Confirmed Type aspirin 81 mg PO PM 05/14/20 06/17/20 History cyanocobalamin (vitamin B-12) 500 mcg PO PM 05/14/20 06/17/20 History [Vitamin B-12] lisinopril 2.5 mg PO HS 05/14/20 06/17/20 History metformin 500 mg PO QAM 05/14/20 06/17/20 History omega 5-evh-igh-fish oil [Fish Oil] 1 cap PO PM 05/14/20 06/17/20 History omeprazole 20 mg PO HS 05/14/20 06/17/20 History oxycodone-acetaminophen [Percocet] 1 tab PO Q6H PRN #7 tab 06/11/20 06/17/20 Rx atenolol 50 mg PO DAILY 06/17/20 06/17/20 History ondansetron HCl 8 mg PO Q8H PRN 06/17/20 06/17/20 History prochlorperazine maleate 10 mg PO Q6H PRN 06/17/20 06/17/20 History [Compazine] Patient History Medical History DM2 (diabetes mellitus, type 2) NIDDM GERD (gastroesophageal reflux disease) History of biliary stent insertion AT [facility] MAY 2020 Hypertension Liver metastases Neuroendocrine carcinoma Diagnosed earlier in May 2020 Osteoarthritis Pancreatic mass Surgical History History of colonoscopy History of esophagogastroduodenoscopy (EGD) History of hernia repair INGUINAL X2 Family History Other Thyroid disease Social History Smoking Status: Former smoker Second Hand Exposure: Yes; Hx Alcohol Use: Yes (history of heavy use, quit in Dec 2019) Hx Substance Use: No Preferred Language: Mongolian Communication Ability: Effective Section Leader Screen Printing Required: No Beliefs That Will Affect Care: None Current Living Situation: Spouse Other Information That Helps Us Care for You: No Feels Safe at Home: Yes Safety Concerns: Feels Safe At This Time Review of Systems Review of Systems: All systems reviewed & are unremarkable except as noted in HPI & below Physical Exam Constitutional: + ill appearing and cooperative Eyes: PERRL, conjunctivae normal, anicteric sclerae ENMT: external ear and nose normal, oropharynx normal Respiratory: Auscultation: + diminished lung sounds short shallow breathing likely related to distended abdomen Cardiovascular: RRR, no murmur, no edema Gastrointestinal (Abdomen): Inspection/Auscultation: + abdomen distended and normal bowel sounds Percussion/Palpation: abdomen nontender Skin: no rashes, warm and dry no jaundice Psychiatric: A+Ox3, euthymic affect Lymphatic: no lymphedema Results & Data ([facility]) Vital Signs (Past 12 Hours) Vital Signs Temp Pulse Resp BP BP Pulse Ox 06/18/20 07:23 102/53 L 06/18/20 07:15 36.8 C 108 H 20 88/53 L 92 06/18/20 03:43 36.8 C 108 H 21 99/51 L 92 06/17/20 23:33 36.4 C L 109 H 22 98/52 L 91 (1) Acute renal failure Acute renal failure type: unspecified Qualified Code(s): N17.9 - Acute kidney failure, unspecified
[2020-06-18] MEDS ORDERED: VANCOMYCIN CONSULT ACTIVE PRN (11:51)
[2020-06-18] MEDS ORDERED: VANCOMYCIN HCL 2,000 MG in SODIUM CHLORIDE 0.9% 500 ML IV ONE (12:00)
--- NOTE | 2020-06-18 13:35 | Ultrasound Report ---
US abdomen ltd ascites CLINICAL HISTORY: Follow-up ascites. COMPARISON STUDY: Abdominal ultrasound 06/17/2020. FINDINGS: Small amount of abdominal ascites. This has improved in the interval. Right lower quadrant catheter is visualized. Heterogeneous liver consistent with the patient's known hepatic masses. Dilat ed loops of bowel are again noted. IMPRESSION: 1. Interval decrease in the small amount of ascites. A catheter is noted within the right lower quadr ant. 2. Dilated loops of bowel are again noted. 3. Hepatic masses are partially visualized. ACT 112: Negative or not required by law. Electronically signed by: Isidro Soto M.D. 06/18/2020 1:33 PM
[2020-06-18] MEDS ORDERED: LIDOCAINE HCL 5% OINT 30 GM TUBE EXT PRN (13:57)
[2020-06-18] MEDS: HEPARIN SOD 5,000 UNIT/0.5 ML VIAL SQ SCH ×2 (14:12→22:30)
[2020-06-18 14:43] LABS: BUN Creatinine Ratio 23.5 (10-20); Calcium 7.5 mg/dl (8.5-10.1); Creatinine Clr Calc Pharmacy 23.5 ml/min; Est GFR (African American) 21.9; Est GFR (Non-African American) 18.9; Potassium 5.7 mmol/L (3.5-5.1); Uric Acid 10.2 mg/dl (2.6-7.2)
--- NOTE | 2020-06-18 14:54 | Pharmacy Report ---
Pharmacy Abx Initial Consult - Date of Service June 18, 2020 - Pharmacy Dosing Scope Date of Consult: 06/18/20 Consultation requested by: Dr. Rincon Pharmacy is consulted to initiate Vancomycin and Cefepime IV dosing therapy, order appropriate labs and adjust drug dose/frequency. - Subjective The patient is a 65 year old M admitted on 06/17/20 15:57. - Objective Height: 5 ft 8 in Weight: 83.7 kg Vital Signs (Past 12hrs): Vital Signs Temp Pulse Pulse Resp BP BP Pulse Ox 06/18/20 12:05 36.6 C 100 H 20 93/56 L 90 06/18/20 08:00 105 H 06/18/20 07:23 102/53 L 06/18/20 07:15 36.8 C 108 H 20 88/53 L 92 06/18/20 03:43 36.8 C 108 H 21 99/51 L 92 Lab Results (24hrs): Laboratory Tests (24 Hours) 06/18/20 06/18/20 06/18/20 05:32 05:32 01:02 WBC 11.15 H Creatinine 3.23 H 3.23 H Est Cr Clr Drug Dosing 23.4 23.4 Total Creatine Kinase 06/17/20 06/17/20 06/17/20 21:18 19:11 18:36 WBC Creatinine 3.01 H 2.95 H Est Cr Clr Drug Dosing 25.1 25.6 Total Creatine Kinase 472 H 06/17/20 14:00 WBC Creatinine 3.01 H Est Cr Clr Drug Dosing Not Reportable Total Creatine Kinase Micro Results: 06/17/20 15:17 Gram Stain - Final Abdomen 06/18/20 00:08 Urine Culture - Pending Urine,Indwelling Cath 06/17/20 18:55 Aerobic Blood Culture - Pending Blood Anaerobic Blood Culture - Pending 06/17/20 18:36 Aerobic Blood Culture - Pending Blood Anaerobic Blood Culture - Pending - Risk Factors for Resistance * Hospitalization for 48 hours or more within the past 90 days * Immunocompromised, pt has active cancer. Neuroendocrine tumor with mets to liver. Palliative chemo was canceled due to pt's condition. - Assessment & Plan Assessment 65 year old M with peritonitis and recent diagnosis of neuroendocrine tumor, mets to liver. Pt presented to primary care for abdominal bloating and nausea He was then referred to [facility] by primary care. * Significant PMH for DM, heavy alcohol use. * acute renal failure, baseline SCr 0.8mg/dL last month, now at 3.2mg/dL. * Blood, abdominal, and urine cultures pending. Plan Vancomycin and Cefepime for treatment of peritonitis. Vancomycin IV * Estimated PK Parameters: Pt in ARF, no estimates at this time * Loading dose: 2000 mg (24 mg/kg) * Pt will be dosed per level since pt in ARF. * Goal trough level for peritonitis with sepsis: 15 to 20 mcg/mL * Random level ordered for 06/19/20 with am labs Cefepime * First day of therapy 06/17/20 * Target dose: 2gm q8h, Adjusted to 2gm q24h for CrCl 11-29 mL/min Pharmacy will continue to follow and will adjust dose/frequency as necessary. Thank you.
[2020-06-18] MEDS: ONDANSETRON INJ 2 MG/ML 2 ML VIAL IV PRN (16:06)
--- NOTE | 2020-06-18 16:43 | XRay Report ---
KUB CLINICAL HISTORY: verify NGT placement COMPARISON STUDY: CT of the abdomen and pelvis June 17, 2020. FINDINGS: The tip of the nasogastric tube projects over the distal body of the stomach. Dilated loops of small and large bowel are partially imaged. IMPRESSION: 1. Tip of nasogastric tube projects over the body of the stomach. 2. Redemonstration of small and large bowel distention. ACT 112: Negative or not required by law. Electronically signed by: Deep Armstrong M.D. 06/18/2020 4:42 PM
--- NOTE | 2020-06-18 16:52 | Palliative Care Consultation ---
Date of Consultation June 18, 2020 Assessment & Plan (1) Goals of care, counseling/discussion: Patient is a 65-year-old male with a prior history of diabetes and hypertension who was diagnosed with pancreatic CA with mets to the liver in early May. Patient presented with jaundice and scleral icterus. Scan showed a mass at the head of the pancreas-he had a biliary stent placed, biopsy of the pancreas as well as lesions in the liver-consistent with metastatic neuroendocrine carcinoma. Patient started to develop ascites after the stent was placed-he presented to [facility] on 06/17 with increased abdominal pain and shortness of breath due to ascites. Patient was also hypotensive and tach ycardic on presentation. His potassium was 6.4 on admission-with appropriate treatment is down to 5.7 today. Patient underwent paracentesis-5 L removed- suggestive of SBP. Patient is currently on IV antibiotics. -Met with patient and his , Domenico, in room 209-reviewed the events leading up to this hospitalization, discussed current issues including SBP, acute kidney injury with poor urine output, as well as advanced metastatic pancreatic cancer. -Discussed, patient and aware that he is not a current candidate for any form of chemo. -Discussed that his renal function may be a deciding factor as far as his prognosis. Plan for now is to continue albumin infusions with Lasix to try to diurese and improve renal function. -Patient denies pain -Patient does have nausea with occasional vomiting which is complicating his current medication regime. -Discussed options of returning home and continued IV therapies with home health or home palliative program, if the kidneys do not improve and continue to worsen would recommend returning home with hospice care. Patient currently has a Pleurx drain in place-draining to gravity-cloudy yellowish fluid. Discussed the risk of recurrent SBP with Pleurx in place versus keeping it in place for comfort. -Discussed CODE STATUS at length, patient and would like to remain a full code at this time, plan to change his CODE STATUS once he gets home. -Patient has 2 daughters, Analy who lives locally age 41, and Annie who lives in [place] age 38. They have 6 grandchildren and 1 great grandchild. They have 1 daughter who is in the medical field. -Both patient and are realistic and seem to grasp the seriousness of his current status and prognosis -Palliative service will continue to follow and assist patient and family with medical decision making. (2) Peritonitis: Continue IV antibiotics, Pleurx drain to gravity (3) Neuroendocrine carcinoma: Discussed questions patient and would need to ask oncology regarding possible chemo (4) Liver metastases: (5) Abdominal ascites: Status post paracentesis for 5 L-continuing to attempt to diurese with IV albumin and Lasix. (6) Shortness of breath: Markedly improved status post paracentesis History of Present Illness Reason for Consultation: Address goals of care as well as CODE STATUS Requesting Physician: Ethan Miranda Attending Physician: Tuyet Rincon MD History of Present Illness Patient is a 65-year-old male with a prior history of diabetes and hypertension who was diagnosed with pancreatic CA with mets to the liver in early May. Patient presented with jaundice and scleral icterus. Scan showed a mass at the head of the pancreas-he had a biliary stent placed, biopsy of the pancreas as well as lesions in the liver-consistent with metastatic neuroendocrine carcinoma. Patient started to develop ascites after the stent was placed-he presented to [facility] on 06/17 with increased abdominal pain and shortness of breath due to ascites. Patient was also hypotensive and tachycardic on presentation. His potassium was 6.4 on admission-with appropriate treatment is down to 5.7 today. Patient underwent paracentesis-5 L removed-suggestive of SBP. Patient i s currently on IV antibiotics. -Met with patient and his , Domenico, in room 209-reviewed the events leading up to this hospitalization, discussed current issues including SBP, acute kidney injury with poor urine output, as well as advanced metastatic pancreatic cancer. -Discussed, patient and aware that he is not a current candidate for any form of chemo. -Discussed that his renal function may be a deciding factor as far as his prognosis. Plan for now is to continue albumin infusions with Lasix to try to diurese and improve renal function. -Patient denies pain -Patient does have nausea with occasional vomiting which is complicating his current medication regime. -Discussed options of returning home and continued IV therapies with home health or home palliative program, if the kidneys do not improve and continue to worsen would recommend returning home with hospice care. Patient currently has a Pleurx drain in place-draining to gravity-cloudy yellowish fluid. Discussed the risk of recurrent SBP with Pleurx in place versus keeping it in place for comfort. -Discussed CODE STATUS at length, patient and would like to remain a full code at this time, plan to change his CODE STATUS once he gets home. -Patient has 2 daughters, Analy who lives locally age 41, and Annie who lives in [place] age 38. They have 6 grandchildren and 1 great grandchild. They have 1 daughter who is in the medical field. -Both patient and are realistic and seem to grasp the seriousness of his current status and prognosis -Palliative service will continue to follow and assist patient and family with medical decision making. Allergies Allergy/AdvReac Type Severity Reaction Status Date / Time No Known Allergies Allergy Verified 06/17/20 15:58 Home Medications Home Medications Medication Instructions Recorded Confirmed Type aspirin 81 mg PO PM 05/14/20 06/17/20 History cyanocobalamin (vitamin B-12) 500 mcg PO PM 05/14/20 06/17/20 History [Vitamin B-12] lisinopril 2.5 mg PO HS 05/14/20 06/17/20 History metformin 500 mg PO QAM 05/14/20 06/17/20 History omega 3-cgl-kkn-fish oil [Fish Oil] 1 cap PO PM 05/14/20 06/17/20 History omeprazole 20 mg PO HS 05/14/20 06/17/20 History oxycodone-acetaminophen [Percocet] 1 tab PO Q6H PRN #7 tab 06/11/20 06/17/20 Rx atenolol 50 mg PO DAILY 06/17/20 06/17/20 History ondansetron HCl 8 mg PO Q8H PRN 06/17/20 06/17/20 History prochlorperazine maleate 10 mg PO Q6H PRN 06/17/20 06/17/20 History [Compazine] Patient History Medical History DM2 (diabetes mellitus, type 2) NIDDM GERD (gastroesophageal reflux disease) History of biliary stent insertion AT [place] MAY 2020 Hypertension Liver metastases Neuroendocrine carcinoma Diagnosed earlier in May 2020 Osteoarthritis Pancreatic mass Surgical History History of colonoscopy History of esophagogastroduodenoscopy (EGD) History of hernia repair INGUINAL X2 Family History Other Thyroid disease Social History Smoking Status: Former smoker Second Hand Exposure: Yes; Hx Alcohol Use: Yes (history of heavy use, quit in Dec 2019) Hx Substance Use: No Preferred Language: Lithuanian Communication Ability: Effective Melt House Drag Operator Required: No Beliefs That Will Affect Care: None marital status: Current Living Situation: Spouse How many Children do You have: 2 Other Information That Helps Us Care for You: No Feels Safe at Home: Yes Safety Concerns: Feels Safe At This Time Review of Systems Review of Systems: Patient denies pain, fever, chills, chest pain, shortness of breath or abdominal pain Presenting shortness of breath improved with thoracentesis Physical Exam Physical Exam: PE: Patient awake and alert, no acute distress HEENT: EOMI, mild scleral icterus Respirations: Unlabored, on O2 at 2 L CV: Tachycardic, no lower extremity edema Abdomen: Distended, not tense, nontender to palpation, decreased bowel sounds Skin: Jaundiced Neuro: Alert and oriented able to participate and make medical decisions. Results & Data Vital Signs (Past 12 Hours) Vital Signs Temp Pulse Pulse Resp BP BP Pulse Ox 06/18/20 15:56 98.2 F 104 H 19 98/57 L 91 06/18/20 15:00 107 H 06/18/20 12:05 97.9 F 100 H 20 93/56 L 90 06/18/20 08:00 105 H 06/18/20 07:23 102/53 L 06/18/20 07:15 98.2 F 108 H 20 88/53 L 92 PG Care Time/CCT Total # of Minutes Spent Total Time Spent with Patient: Total time spent 70 minutes with greater than 50% of the time at bedside discussing patient's current condition, prognosis and goals of care as well as collaborating with attending physician Coding Level of Care Code 13020 Inpt Consult Level 3 Diagnoses Goals of care, counseling/discussion Z71.89 Peritonitis K65.9 Neuroendocrine carcinoma C7A.8 Liver metastases C78.7 Abdominal ascites R18.8 Shortness of breath R06.02 Time Spent (min) 70
[2020-06-18] MEDS: CEFEPIME 2,000 MG in SYRINGE 7.5 ML IV SCH (17:28)
[2020-06-18 20:34] LABS: BUN Creatinine Ratio 24.7 (10-20); Calcium 8.1 mg/dl (8.5-10.1); Creatinine Clr Calc Pharmacy 22.8 ml/min; Est GFR (African American) 21.1; Est GFR (Non-African American) 18.2; Potassium 5.2 mmol/L (3.5-5.1)
[2020-06-19] MEDS ORDERED: HEPARIN 100 UNIT/ML 5ML FLUSH FLUSH PRN (00:11)
[2020-06-19] MEDS: ALBUMIN 25% 50 ML with FUROSEMIDE 20 MG IV SCH ×5 (02:00→18:06)
[2020-06-19] MEDS: SODIUM BICARBONATE 8.4% 150 MEQ in DEXTROSE 5% 1,000 ML IV SCH ×2 (02:00→21:09)
[2020-06-19] MEDS: INSULIN ASPART 100 UNITS/ML 3 ML PEN SC SCH ×4 (06:03→18:08)
[2020-06-19] MEDS: HEPARIN SOD 5,000 UNIT/0.5 ML VIAL SQ SCH ×3 (06:04→22:21)
--- NOTE | 2020-06-19 06:04 | Surgery Progress Note ---
Date of Service June 19, 2020 Assessment & Plan Admission and Anticipated Discharge Date Admission Date: June 17, 2020 There is no surgical indication at this time Continue with NG decompression Subjective No subjective change from yesterday feels about the same the abdomen is still distended but does not hurt Physical Exam Physical Exam: He is alert coherent without any true complaints at this time The abdomen remains distended but no localized tenderness and pretty much the same as yesterday Results & Data ([facility]) Vital Signs (Past 12 Hours) Vital Signs Temp Pulse Resp BP BP Pulse Ox 06/19/20 04:57 36.6 C 103 H 20 105/64 91 06/18/20 23:26 36.6 C 108 H 18 107/58 L 91 06/18/20 19:15 36.8 C 107 H 20 99/57 L 92 results noted including significant NG output recorded PG Care Time/CCT Total # of Minutes Spent Total Time Spent with Patient: Total time spent is greater than 50% in coordination of care (as documented) at patient's floor/unit and/or counseling patient: Coding Level of Care Code 76358 Subseq Hosp Care Lvl 3
[2020-06-19 06:14] LABS: Hemoglobin 10.9 g/dL (14.0-18.0); Mean Corpuscular Hemoglobin 30.6 pg (25-34); Mean Corpuscular Hgb Conc 34.1 g/dL (32-36); Mean Corpuscular Volume 89.9 fL (80-100); Mean Platelet Volume 10.2 fL (7.4-10.4); Platelet Count 335 K/uL (130-400); RDW Coefficient of Variation 14.5 % (11.5-14.5); RDW Standard Deviation 47.7 fL (36.4-46.3); Red Blood Count 3.56 M/uL (4.7-6.1); White Blood Count 10.18 K/uL (4.8-10.8)
[2020-06-19 06:43] LABS: Albumin Level 2.2 gm/dl (3.4-5.0); BUN Creatinine Ratio 25.9 (10-20); Calcium 7.3 mg/dl (8.5-10.1); Est GFR (African American) 22.5; Est GFR (Non-African American) 19.4; Potassium 4.6 mmol/L (3.5-5.1)
[2020-06-19 06:46] LABS: Albumin Globulin Ratio 0.6 (0.9-2); Bilirubin,Total 1.4 mg/dl (0.2-1); Globulin 3.8 gm/dl (2.5-4.0)
[2020-06-19] MEDS ORDERED: VANCOMYCIN HCL 1,000 MG in SODIUM CHLORIDE 0.9% 250 ML IV ONE (09:00)
--- NOTE | 2020-06-19 12:06 | Gastroenterology Progress Note ---
Date of Service June 19, 2020 Assessment & Plan (1) Neuroendocrine carcinoma: (2) Liver metastases: (3) Sepsis: (4) Peritonitis: (5) Acute renal failure: Pt is a 65 y/o male w neuroendocrine tumor of pancreas w liver mets s/p biliary stent placement for obstructive jaundice, currently admitted with sepsis, ARF, bowel obstructive vs ileus w transition point seen at splenic flexure, SBP. NGT, peritoneal drain output >1L overnight. He had loose BMs this AM. - Continue Cefepime for SBP treatment - Defer antibx management for possible pneumonia to primary team - Consider DC of peritoneal perc drain by tomorrow , and if ascites re- accumulate will plan for periodic paracentesis. Won't recommend pt having permanent drain as it can be an infectious route - Continue NGT for now - Discussed poor prognosis with pt; Palliative care consulted - Nephrology following, appreciate recx. Admission and Anticipated Discharge Date Admission Date: June 17, 2020 Supervising Physician Co-Signing Physician Notes Attending attestation I have seen, examined this patient, and agree with the findings and above by our mid-level provider ARELI Mercado, with the following additions: - Doing ok with NGT, abdomen smaller, ascites draining but catheter is not penitentiary solution and will need to be pulled Subjective Pt denies abd pain, n/v. c/o discomfort from NGT NGT output 1.6L Peritoneal perc drain output 1.1L UOP 900ml 2 loose BM this AM Review of Systems Review of Systems: All systems reviewed & are unremarkable except as noted in HPI & below Physical Exam Constitutional: cooperative and comfortable Eyes: PERRL, conjunctivae normal, anicteric sclerae ENMT: external ear and nose normal, oropharynx normal Cardiovascular: RRR, no murmur, no edema Gastrointestinal (Abdomen): Inspection/Auscultation: + abdomen distended and normal bowel sounds Percussion/Palpation: abdomen nontender Peritoneal perc drain to RLQ, NGT w bilious output Skin: no rashes, warm and dry no jaundice Psychiatric: A+Ox3, euthymic affect Lymphatic: no lymphedema Results & Data ([facility]) Vital Signs (Past 12 Hours) Vital Signs Temp Pulse Pulse Resp BP BP Pulse Ox 06/19/20 11:26 37.0 C 105 H 19 113/58 L 91 06/19/20 08:00 109 H 08/12/20 07:15 36.7 C 111 H 18 106/58 L 91 06/19/20 04:57 36.6 C 103 H 20 105/64 91 (1) Acute renal failure Acute renal failure type: unspecified Qualified Code(s): N17.9 - Acute kidney failure, unspecified
--- NOTE | 2020-06-19 13:55 | Pharmacy Report ---
Pharmacy Abx Dose Short Note - Date of Service June 19, 2020 - Assessment & Plan Assessment 65 year old M receiving vancomycin/cefepime for treatment of peritonitis Day # 2 of antimicrobial therapy. Plan Vancomycin * Random level this morning of 16.2, will redose with 1000 mg x1 * SCr stable from yesterday, T1/2 estimates greater than 24 hours, will continue dosing by level * Goal trough level 15-20 mcg/mL * Random level ordered for 813 AM Pharmacy will continue to follow and will adjust dose/frequency as necessary. Thank you.
--- NOTE | 2020-06-19 13:59 | XRay Report ---
KUB CLINICAL HISTORY: Abdominal distention. FINDINGS: An AP, portable, supine abdominal radiograph is compared to study dated 06/18/2020 and corre lated with abdominal CT dated 06/17/2020. An enteric tube projects over the stomach. Distended loops o f small bowel and colon are similar to previous. No evidence of intraperitoneal free air is seen on t his supine view. A common bile duct stent is in place. Phleboliths are noted in the pelvis. The bony structures are osteopenic and appear intact. IMPRESSION: 1. An enteric tube projects over the stomach. 2. Distended loops of small bowel and colon are similar to previous. Electronically signed by: Flaquito Martinez M.D. 06/19/2020 1:57 PM
[2020-06-19] MEDS: CEFEPIME 2,000 MG in SYRINGE 7.5 ML IV SCH (15:54)
--- NOTE | 2020-06-19 16:08 | Hospitalist Progress Note ---
Date of Service June 19, 2020 Assessment & Plan (1) Sepsis: (2) Abdominal ascites: 65-year-old male with PMH of 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 Paracentesis performed in ED with 5 L drainage and peritoneal catheter left in place. Peritoneal fluid with >11,000 wbcs and growth of moderate gram positive cocci -final culture pending Peritoneal catheter has not been draining much. PleurX catheter placed in the ER has been drained a little Received albumin q4h post paracentesis Abd u/s showed interval decrease in the small amount of ascites. A catheter is noted within the right lower quadrant. Dilated loops of bowel are again noted. Ascites fluid positive for alpha strep not enterococcus Currently on IV cefepime and Vancomycin Case discussed with GI and recommended to discontinue the PleurX catheter due to risk of infection Will talk to surgery in am to remove the PleurX catheter (3) Neuroendocrine carcinoma: (4) Liver metastases: Diagnosed 1 month ago with high-grade neuroendocrine tumor with metastatic incurable disease Was due to start chemotherapy on 06/17/20 date of admission but due to ascites and acute renal failure, was sent to [facility] for paracentesis Admitting Provider discussed case with Dr. Ramirez, who stated that patient is not a candidate for palliative chemo at this time with ARF Palliative met with family and not ready to change CODE Status to DNR yet (5) Acute hyperkalemia: K on admission 6.4 No acute EKG changes. Treated in ED with IV calcium, IV bicarb, IV dextrose and IV insulin as well as IV fluids On IV bicarb drip as per nephrology K improved to 4.2 Continue monitor BMP (6) Acute renal failure: Cr elevated to 3 (0.8 last month), K of 6.4, bicarb of 17 on admission Worsening renal function. Creatinine 3.1 today Discussed with Nephrology Dr Ayala No a candidate for dialysis if renal function worsening Continue monitor BMP (7) Ileus: CT abd pelvis showed ileus vs obstructing colonic lesion Surgical evaluation noted. Patient is not a surgical candidate. Continue conservative management Continue NG tube with suctioning for decompression KUB today showed an enteric tube projects over the stomach. Distended loops of small bowel and colon are similar to previous. Will need to limit the use of opioid Continue to keep NPO Monitor electrolytes (8) DM2 (diabetes mellitus, type 2): Hold home agents SSI while in-patient BSG AC HS (9) GERD (gastroesophageal reflux disease): Continue PPI DVT Ppx: Hep sq CODE STATUS Admission and Anticipated Discharge Date Admission Date: June 17, 2020 Subjective Pt was seen and examined Lying in bed with at bedside Pt said that he had 2 small bowel movements today He said that he feels his abdomen his less distended today NG tude and pleurX catheter continue to drain Denies any chest pain, palpitation, dizziness and SOB Physical Exam Physical Exam: General- No acute distress Head- atraumatic Eyes- PERRL, EOMI, ENT- oropharynx clear Neck- supple, no JVD Lungs- clear to auscultation Heart- regular rhythm; no murmur Abdomen- +bowel sound, +distended Extremities- no calf tenderness Neuro- alert, oriented x 3; PERRL, EOMI; no facial palsy; no dysarthria Skin- warm & dry Results & Data Results & Data ([facility]) Vital Signs (Past 12 Hours) Vital Signs Temp Pulse Pulse Resp BP BP Pulse Ox 06/19/20 15:49 36.9 C 110 H 22 108/58 L 90 06/19/20 15:30 108 H 06/19/20 11:26 37.0 C 105 H 19 113/58 L 91 06/19/20 08:00 109 H 06/19/20 07:15 36.7 C 111 H 18 106/58 L 91 06/19/20 04:57 36.6 C 103 H 20 105/64 91 (1) Acute renal failure Acute renal failure type: unspecified Qualified Code(s): N17.9 - Acute kidney failure, unspecified
--- NOTE | 2020-06-19 20:42 | Nephrology Progress Note ---
Date of Service June 19, 2020 Assessment & Plan (1) Acute hyperkalemia: K has been managed medically ; not a dialysis candidate. -he had bicarb gtt again at 80 mL hourly and lasix/albumin 20 mg IV q 4h since this am even with above labs > will stop overnight and reeval in am; run NS at 50 overnight -care coordinated with Dr camp >>NO kayexalate for this pt d/t ileus -hold lisinopril -currently NPO >> when taking po, needs renal and low K diet -CK trending up > recheck in am (2) Acute renal failure: LOREN no longer oligoanuric. baseline creatinine 0.8 mid May; presenting creatinine 2.5 on 06-17-20 AM; creatinine 3.0 on presentation, plateaud in low 3s past 24 hr. in the setting of nsaids, ACEI, metformin and minimal po with worsening cancer status, relative hypotension >> this alone may be enough to explain his situation>> cause is ischemic ATN in setting of illness; no obstruction on imaging -with his advanced cancer this patient is not a candidate for dialysis -daily bmp -follow up cultures; impression is more advanced dehydration and worsening cancer burden than sepsis -if/when taking po needs low K/renal diet (3) Neuroendocrine carcinoma: -follow up palliative care recs and discussions Admission and Anticipated Discharge Date Admission Date: June 17, 2020 Subjective seen on rounds at 1055; got NGT which is uncomfortable but abd distension much better. less N. 1.2L NG output. no diarrhea, no edema, no worsening sob Review of Systems Review of Systems: All systems reviewed & are unremarkable except as noted in HPI & below Physical Exam Constitutional: well developed and + malnourished; no acute distress NGT Eyes: EOM intact bilaterally ENMT: Ears: no external ear abnormality Nose: no external nose abnormality Mouth: + dry oral mucous membranes Neck: no nuchal rigidity Respiratory: able to speak in complete sentences; no labored breathing and does not use accessory muscles Auscultation: + diminished lung sounds Cardiovascular: Rate/Rhythm: regular rhythm and + tachycardic Extremities: no edema Gastrointestinal (Abdomen): Inspection/Auscultation: + abdomen distended and + hypoactive bowel sounds Percussion/Palpation: abdomen nontender and no gua rding Musculoskeletal: Extremities: + abnormal strength (generalized weakness) Skin: no rashes, warm and dry Neurologic: reyes, more talkative today, generalized weakness Psychiatric: Orientation: alert and oriented x 3 Affect: + flat affect Genitourinary: matta with scant output Results & Data ([facility]) Vital Signs (Past 12 Hours) Vital Signs Temp Pulse Pulse Resp BP BP Pulse Ox 06/19/20 19:41 37.1 C 106 H 20 107/59 L 91 06/19/20 15:49 36.9 C 110 H 22 108/58 L 90 06/19/20 15:30 108 H 06/19/20 11:26 37.0 C 105 H 19 113/58 L 91 Laboratory Results 06/19/20 05:51 06/19/20 05:51 (1) Acute renal failure Acute renal failure type: unspecified Qualified Code(s): N17.9 - Acute kidney failure, unspecified
[2020-06-19] MEDS ORDERED: SODIUM CHLORIDE 0.9% 1000ML 1,000 ML IV SCH (20:45)
--- NOTE | 2020-06-19 23:34 | Electrocardiogram Report ---
Test Reason : Blood Pressure : / mmHG Vent. Rate : 103 BPM Atrial Rate : 103 BPM P-R Int : 146 ms QRS Dur : 074 ms QT Int : 350 ms P-R-T Axes : 030 009 030 degrees QTc Int : 458 ms Sinus tachycardia Otherwise normal ECG When compared with ECG of 17-JUN-2020 13:51, No significant change was found Confirmed by Nathaniel Mcdonald ([id number]) on 06/19/2020 11:34:16 PM Referred By: REFERRED SELF Confirmed By:Nathaniel Mcdonald
[2020-06-20] MEDS: INSULIN ASPART 100 UNITS/ML 3 ML PEN SC SCH ×4 (00:13→19:40)
[2020-06-20] MEDS ORDERED: ATENOLOL 25 MG TABLET PO SCH (04:40)
[2020-06-20 05:21] LABS: Basophils # (auto) 0.01 K/uL (0-0.2); Basophils % (auto) 0.1 %; Hematocrit (blood only) 32.8 % (42-52); Hemoglobin 11.1 g/dL (14.0-18.0); Immature Granulocytes % (auto) 0.7 %; Lymphocytes # (auto) 0.92 K/uL (1.2-3.4); Lymphocytes % (auto) 6.1 %; Mean Corpuscular Hemoglobin 30.7 pg (25-34); Mean Corpuscular Hgb Conc 33.8 g/dL (32-36); Mean Corpuscular Volume 90.9 fL (80-100); Mean Platelet Volume 10.3 fL (7.4-10.4); Monocytes # (auto) 1.28 K/uL (0.11-0.59); Monocytes % (auto) 8.5 %; Neutrophils # (auto) 12.76 K/uL (1.4-6.5); Neutrophils % (auto) 84.6 %; Platelet Count 259 K/uL (130-400); RDW Coefficient of Variation 14.6 % (11.5-14.5); RDW Standard Deviation 48.4 fL (36.4-46.3); Red Blood Count 3.61 M/uL (4.7-6.1); White Blood Count 15.07 K/uL (4.8-10.8)
[2020-06-20 05:25] LABS: Allen Test Pos (Pos); Base Excess ABG 4.2 mEq/L (-9-1.8); HCO3 ABG 28 mmol/L (19-24); PCO2 ABG 37 mmHg (35-46); PO2 ABG 61 mmHg (80-95); pH ABG 7.49 (7.35-7.45)
[2020-06-20 05:32] LABS: Partial Thromboplastin Ratio 1.3; Partial Thromboplastin Time 35.6 Seconds (21.0-31.0)
[2020-06-20 05:49] LABS: BUN Creatinine Ratio 31.2 (10-20); Calcium 7.4 mg/dl (8.5-10.1); Creatinine Clr Calc Pharmacy 27.9 ml/min; Est GFR (Non-African American) 23.3; Magnesium 2.5 mg/dl (1.8-2.4); Potassium 3.4 mmol/L (3.5-5.1)
[2020-06-20 06:05] LABS: Thyroid Stimulating Hormone 0.888 uIu/ml (0.300-4.500)
[2020-06-20] MEDS: HEPARIN SOD 5,000 UNIT/0.5 ML VIAL SQ SCH ×3 (06:08→21:49)
--- NOTE | 2020-06-20 06:17 | XRay Report ---
XR chest 1V portable CLINICAL HISTORY: low o2 dyspnea COMPARISON STUDY: 06/17/2020 FINDINGS: Slightly improved aeration of both lung bases. Improved visibility right hemidiaphragm. Pul monary apices are considered clear. Central catheter remains in superior vena cava. IMPRESSION: Improved aeration both lung bases. ACT 112: Negative or not required by law. The above report was generated using voice recognition software. It may contain grammatical, syntax or spelling errors. Electronically signed by: Kendrick Sykes M.D. 06/20/2020 6:16 AM
[2020-06-20] MEDS ORDERED: POTASSIUM CHLORIDE 40 MEQ in SODIUM CHLORIDE 0.9% 1000ML 1,000 ML IV SCH (07:15)
[2020-06-20] MEDS ORDERED: VANCOMYCIN HCL 750 MG in SODIUM CHLORIDE 0.9% 250 ML IV ONE (07:30)
[2020-06-20] MEDS: POTASSIUM CHLORIDE / WTR 10 MEQ/100 ML PLCT IV SCH ×4 (08:11→23:24)
--- NOTE | 2020-06-20 10:30 | Nephrology Progress Note ---
Date of Service June 20, 2020 Assessment & Plan (1) Acute hyperkalemia: K has been managed medically ; not a dialysis candidate. Resolved and actually low at 3.4 today >> note that overnight aggressive K repletion ordered including K 10 mEq x 6 and NS with 40 mEq/L K at 75 ml hourly >> will stop these and repeat bmp at 1300 >>NO kayexalate for this pt d/t ileus -hold lisinopril -currently NPO >> no need at this time for special K diet when taking po -CK trending down now; no need to follow further (2) Acute renal failure: LOREN no longer oligoanuric. baseline creatinine 0.8 mid May; presenting creatinine 2.5 on 810-20 AM; creatinine 3.0 on presentation, plateau'd in low 3s now down slightly to 2.7 today. in the setting of ACEI, metformin and minimal po with worsening cancer status, relative hypotension >> this alone may be enough to explain his situation>> cause is ischemic ATN in setting of illness; no obstruction on imaging -with his advanced cancer this patient is not a candidate for dialysis -daily bmp -- but will repeat bmp 1300 >>IVF off now -follow up cultures; impression is more advanced dehydration and worsening cance r burden than sepsis (3) Neuroendocrine carcinoma: -follow up palliative care recs and discussions Admission and Anticipated Discharge Date Admission Date: June 17, 2020 Subjective no acute interval clinical events. still with NGT but may be removing soon Review of Systems Review of Systems: All systems reviewed & are unremarkable except as noted in HPI & below Physical Exam Constitutional: well developed and + malnourished; no acute distress Eyes: EOM intact bilaterally ENMT: Ears: no external ear abnormality Nose: no external nose abnormality Mouth: + dry oral mucous membranes Neck: no nuchal rigidity Respiratory: able to speak in complete sentences; no labored breathing and does not use accessory muscles Auscultation: + diminished lung sounds Cardiovascular: Rate/Rhythm: regular rhythm and + tachycardic Extremities: no edema Gastrointestinal (Abdomen): Inspection/Auscultation: + abdomen distended and normal bowel sounds Percussion/Palpation: abdomen nontender and no guarding paracentesis drain present Musculoskeletal: Extremities: + abnormal strength (generalized weakness) Skin: no rashes, warm and dry Neurologic: reyes, fluent speech, no tremor Psychiatric: Orientation: alert and oriented x 3 Affect: + flat affect Results & Data ([facility]) Vital Signs (Past 12 Hours) Vital Signs Temp Pulse Pulse Resp BP Pulse Ox 06/20/20 08:00 112 H 06/20/20 07:21 36.8 C 102 H 18 115/60 94 06/20/20 04:40 37.0 C 103 H 21 113/55 L 90 06/20/20 00:00 112 H 06/19/20 23:33 37.1 C 106 H 20 114/57 L 90 Laboratory Results 06/20/20 04:52 bmp reviewed (1) Acute renal failure Acute renal failure type: unspecified Qualified Code(s): N17.9 - Acute kidney failure, unspecified
--- NOTE | 2020-06-20 10:58 | Gastroenterology Progress Note ---
Date of Service June 20, 2020 Assessment & Plan (1) Neuroendocrine carcinoma: (2) Liver metastases: (3) Sepsis: (4) Peritonitis: (5) Acute renal failure: Pt is a 65 y/o male w neuroendocrine tumor of pancreas w liver mets s/p biliary stent placement for obstructive jaundice, currently admitted with sepsis, ARF, bowel obstructive vs ileus w transition point seen at splenic flexure, SBP. NGT output decreasing, UOP and renal function improving. His abd softer and had BMs. Perc drain is putting out >2L, WBC is increased to 15K today - Continue Cefepime for SBP treatment - Defer antibx management for possible pneumonia to primary team - Consider DC of peritoneal perc drain today (may try asking Surgery team to pull drain and place a suture to close wound). If ascites re-accumulate will plan for periodic paracentesis. Won't recommend pt having permanent drain as it can be an infectious route - Sips of clear ok. Clamp NGT and if tolerating may DC by end of day - Discussed poor prognosis with pt; Palliative care consulted - Nephrology following, appreciate recs Admission and Anticipated Discharge Date Admission Date: June 17, 2020 Supervising Physician Co-Signing Physician Notes Attending attestation I have seen, examined this patient, and agree with the findings and above by our mid-level provider ARELI Mercado, with the following additions: -Doing well, NG tube to gravity today, would pull peritoneal drain sent for culture and cell count prior to being pulled. -Continue to follow Subjective Pt denies abd pain, n/v, abd feels softer. NGT output 770mL, UOP 1.4L, Peritoneal drain output 2.1L. He had large BM this AM. Review of Systems Review of Systems: All systems reviewed & are unremarkable except as noted in HPI & below Physical Exam Constitutional: cooperative and comfortable Eyes: PERRL, conjunctivae normal, anicteric sclerae ENMT: external ear and nose normal, oropharynx normal Respiratory: Auscultation: lungs clear to auscultation bilaterally; no c rackles and no wheezes Cardiovascular: RRR, no murmur, no edema Gastrointestinal (Abdomen): Inspection/Auscultation: + abdomen distended (mild) and normal bowel sounds Percussion/Palpation: abdomen soft; abdomen nontender Skin: no rashes, warm and dry no jaundice Psychiatric: A+Ox3, euthymic affect Lymphatic: no lymphedema Results & Data ([facility]) Vital Signs (Past 12 Hours) Vital Signs Temp Pulse Pulse Resp BP Pulse Ox 06/20/20 08:00 112 H 06/20/20 07:21 36.8 C 102 H 18 115/60 94 06/20/20 04:40 37.0 C 103 H 21 113/55 L 90 06/20/20 00:00 112 H 06/19/20 23:33 37.1 C 106 H 20 114/57 L 90 (1) Acute renal failure Acute renal failure type: unspecified Qualified Code(s): N17.9 - Acute kidney failure, unspecified
--- NOTE | 2020-06-20 12:27 | Pharmacy Report ---
Pharmacy Abx Dose Short Note - Date of Service June 20, 2020 - Assessment & Plan Assessment 65 year old M receiving VANCOMYCIN/CEFEPIME for treatment of peritonitis/possible pneumonia Day # 3 of antimicrobial therapy. Plan Vancomycin * Random level this AM 19, will redose x 1 with 750 mg * SCr improved slightly today but T1/2 still estimating greater than 24 hours * Continue to dose by levels, next level 8/14 AM Pharmacy will continue to follow and will adjust dose/frequency as necessary. Thank you.
--- NOTE | 2020-06-20 12:50 | XRay Report ---
KUB HISTORY: Follow up study in a patient with abdominal distention EVAL. ABD DISTENSION COMPARISON: KUB 06/19/2020 FINDINGS: Distended loops of large and small bowel redemonstrated. Tips enteric tube is again noted w ithin the expected location of the proximal to mid gastric body. Common bile duct stent appears to be in stable positioning. Phleboliths of the pelvis. No renal calculi. No ureteral calculi. No pneumop eritoneum or pneumatosis. No fracture. IMPRESSION: 1. Stable positioning of the enteric tube. 2. Distended air-filled loops of large and small bowel appear unchanged from comparison. ACT 112: Negative or not required by law. The above report was generated using voice recognition software. It may contain grammatical, syntax o r spelling errors. Electronically signed by: Harley Mcmahon M.D. 06/20/2020 12:49 PM
[2020-06-20 13:59] LABS: BUN Creatinine Ratio 33.4 (10-20); Calcium 7.2 mg/dl (8.5-10.1); Creatinine Clr Calc Pharmacy 27.5 ml/min; Est GFR (African American) 29.4; Est GFR (Non-African American) 25.4
[2020-06-20 14:11] LABS: Potassium 4.3 mmol/L (3.5-5.1)
--- NOTE | 2020-06-20 15:24 | Surgery Progress Note ---
Date of Service June 20, 2020 Assessment & Plan (1) Ileus: Patient offers no complaints Has had some + bowel function From our point of view NGT can be removed and he may be started on clear liquid diet Pleurx catheter still with high output, would favor keeping in for now ?remove prior to discharge No plans for surgical intervention Pt seen and examined with Dr. Okeefe Admission and Anticipated Discharge Date Admission Date: June 17, 2020 Subjective Patient seen resting in bed. Says he has had multiple BM's. Physical Exam Physical Exam: awake Gastrointestinal (Abdomen): Inspection/Auscultation: + abdomen distended Percussion/Palpation: + abdomen not soft Results & Data ([facility]) Vital Signs (Past 12 Hours) Vital Signs Temp Pulse Pulse Resp BP Pulse Ox 06/20/20 15:12 36.8 C 99 H 21 99/53 L 91 06/20/20 11:38 36.8 C 99 H 18 116/56 L 93 06/20/20 08:00 112 H 06/20/20 07:21 36.8 C 102 H 18 115/60 94 06/20/20 04:40 37.0 C 103 H 21 113/55 L 90 PG Care Time/CCT Total # of Minutes Spent Total Time Spent with Patient: Total time spent is greater than 50% in coordination of care (as documented) at patient's floor/unit and/or counseling patient: Coding Level of Care Code 48069 Subseq Hosp Care Lvl 1 Diagnoses Ileus K56.7
[2020-06-20] MEDS: CEFEPIME 2,000 MG in SYRINGE 7.5 ML IV SCH (16:53)
--- NOTE | 2020-06-20 18:03 | Hospitalist Progress Note ---
Date of Service June 20, 2020 Assessment & Plan (1) Sepsis: (2) Abdominal ascites: 65-year-old male with PMH of 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 Paracentesis performed in ED with 5 L drainage and peritoneal catheter left in place. Peritoneal fluid with >11,000 wbcs and growth of moderate gram positive cocci -final culture pending Peritoneal catheter has not been draining much. PleurX catheter placed in the ER continue to drain Abd u/s showed interval decrease in the small amount of ascites. A catheter is noted within the right lower quadrant. Dilated loops of bowel are again noted. Ascites fluid positive for alpha strep not enterococcus Currently on IV cefepime and Vancomycin Case discussed with GI and recommended to discontinue the PleurX catheter due to risk of infection Spoke to surgery about the PleurX cath to remove, since the catheter continue to drain, will keep it for today (3) Neuroendocrine carcinoma: (4) Liver metastases: Diagnosed 1 month ago with high-grade neuroendocrine tumor with metastatic incurable disease Was due to start chemotherapy on 06/17/20 date of admission but due to ascites and acute renal failure, was sent to [facility] for paracentesis Admitting Provider discussed case with Dr. Ramirez, who stated that patient is not a candidate for palliative chemo at this time with ARF Palliative met with family and not ready to change CODE Status to DNR yet (5) Acute hyperkalemia: K on admission 6.4 No acute EKG changes. Treated in ED with IV calcium, IV bicarb, IV dextrose and IV insulin as well as IV fluids On IV bicarb drip as per nephrology Repeat K this afternoon 4.3 Continue monitor BMP (6) SVT (supraventricular tachycardia): Possible related to low K Atenolol has been on hold since pt is NPO Will start on a low dose of Atenolol Continue monitor in tele (7) Acute renal failure: Cr elevated to 3 (0.8 last month), K of 6.4, bicarb of 17 on admission Worsening renal function. Creatinine slightly improved to 2.5 today Discussed with Nephrology Dr Ayala No a candidate for dialysis if renal function worsening Continue monitor BMP (8) Ileus: CT abd pelvis showed ileus vs obstructing colonic lesion Surgical evaluation noted. Patient is not a surgical candidate. Continue conservative management NG tube was placed with low suctioning for decompression KUB today showed distended air-filled loops of large and small bowel appear unchanged from comparison. Will need to limit the use of opioid case discussed with surgery that recommended to d/c the NGT and start on clear liquid diet Will d/c the NGT after pt tolerates the clear liquid diet Monitor electrolytes (9) DM2 (diabetes mellitus, type 2): Hold home agents SSI while in-patient BSG AC HS (10) GERD (gastroesophageal reflux disease): Continue PPI DVT Ppx: Hep sq CODE STATUS Admission and Anticipated Discharge Date Admission Date: June 17, 2020 Subjective Pt was seen and examined Lying in bed with no distress with daughter at bedside Pt said that he feels a little better today He said that he had watery bowel movement today He said that he is passing a lot of gas His abdomen is less tender today He has few episodes of SVT last night on tele monitor Denies any chest pain, palpitation, dizziness and SOB Physical Exam Physical Exam: General- No acute distress Head- atraumatic Eyes- PERRL, EOMI, ENT- oropharynx clear Neck- supple, no JVD Lungs- clear to auscultation Heart- regular rhythm; no murmur Abdomen- +bowel sound, +distended Extremities- no calf tenderness Neuro- alert, oriented x 3; PERRL, EOMI; no facial palsy; no dysarthria Skin- warm & dry Results & Data Results & Data ([facility]) Vital Signs (Past 12 Hours) Vital Signs Temp Pulse Pulse Resp BP Pulse Ox 06/20/20 15:12 36.8 C 99 H 21 99/53 L 91 06/20/20 11:38 36.8 C 99 H 18 116/56 L 93 06/20/20 08:00 112 H 06/20/20 07:21 36.8 C 102 H 18 115/60 94 (1) Acute renal failure Acute renal failure type: unspecified Qualified Code(s): N17.9 - Acute kidney failure, unspecified
[2020-06-20] MEDS ORDERED: ATENOLOL 25 MG TABLET PO ONE (20:00)
[2020-06-20 23:17] LABS: BUN Creatinine Ratio 34.8 (10-20); Calcium 7.9 mg/dl (8.5-10.1); Creatinine Clr Calc Pharmacy 25.1 ml/min; Est GFR (African American) 26.3; Est GFR (Non-African American) 22.7; Magnesium 2.7 mg/dl (1.8-2.4); Potassium 3.2 mmol/L (3.5-5.1)
[2020-06-20] MEDS ORDERED: Nursing to Pharmacy Communication SCH (23:30)
[2020-06-21] MEDS ORDERED: POTASSIUM CHLORIDE PWD 20 MEQ PACK PO STA (01:57)
[2020-06-21] MEDS ORDERED: POTASSIUM CHLORIDE PWD 20 MEQ PACK PO ONE (04:00)
[2020-06-21] MEDS: HEPARIN SOD 5,000 UNIT/0.5 ML VIAL SQ SCH ×3 (05:09→21:56)
[2020-06-21 06:40] LABS: Hematocrit (blood only) 34.4 % (42-52); Hemoglobin 11.8 g/dL (14.0-18.0); Mean Corpuscular Hemoglobin 31.1 pg (25-34); Mean Corpuscular Hgb Conc 34.3 g/dL (32-36); Mean Corpuscular Volume 90.5 fL (80-100); Mean Platelet Volume 10.7 fL (7.4-10.4); Platelet Count 239 K/uL (130-400); RDW Coefficient of Variation 14.8 % (11.5-14.5); RDW Standard Deviation 48.9 fL (36.4-46.3)
--- NOTE | 2020-06-21 07:08 | Surgery Progress Note ---
Date of Service June 21, 2020 Assessment & Plan (1) Ileus: Patient offers no complaints Has had some + bowel function From our point of view NGT can be removed and he may be started on clear liquid diet Pleurx catheter still with high output, would favor keeping in for now ?remove prior to discharge No plans for surgical intervention Pt seen and examined with Dr. Okeefe Admission and Anticipated Discharge Date Admission Date: June 21, 2020 From my point of view the NG tube was ordered removed diet could be increase at the discretion of the primary service There is no further surgical issues that need to be addressed now we will sign off please call if there is any new issues arise Subjective Harlan is doing much better he has had multiple liquid bowel movements NG tube is been clamped yesterday and he tolerated diet apparently the paracentesis catheter was removed yesterday Physical Exam Physical Exam: He is alert coherent overall feels much better The abdomen is completely benign although remains distended Results & Data ([facility]) Vital Signs (Past 12 Hours) Vital Signs Temp Pulse Resp BP Pulse Ox 06/21/20 03:50 36.7 C 82 20 99/52 L 93 06/20/20 23:22 36.8 C 92 H 16 106/55 L 92 06/20/20 19:11 36.5 C 105 H 19 105/52 L 91 PG Care Time/CCT Total # of Minutes Spent Total Time Spent with Patient: Total time spent is greater than 50% in coordination of care (as documented) at patient's floor/unit and/or counseling patient: Coding Level of Care Code 17467 Subseq Hosp Care Lvl 2 Diagnoses Ileus K56.7
[2020-06-21 07:20] LABS: BUN Creatinine Ratio 36.1 (10-20); Calcium 7.6 mg/dl (8.5-10.1); Creatinine Clr Calc Pharmacy 26.4 ml/min; Est GFR (African American) 27.9; Est GFR (Non-African American) 24.1; Potassium 3.9 mmol/L (3.5-5.1)
[2020-06-21] MEDS ORDERED: VANCOMYCIN HCL 750 MG in SODIUM CHLORIDE 0.9% 250 ML IV ONE (07:30)
--- NOTE | 2020-06-21 08:01 | XRay Report ---
XR KUB/Abdomen 1 view CLINICAL HISTORY: f/u obstruction COMPARISON STUDY: 06/20/2020 FINDINGS: Nasogastric tube remains within the gastric fundus. The bowel distention within the abdomen and pelvis is perhaps minimally improved. There are no secondary signs of free air. Several pelvic v ascular calcifications are unchanged. IMPRESSION: 1. Stable to slightly improved distention of the bowel. 2. Unchanged position of a nasogastric tube within the gastric fundus. ACT 112: Negative or not required by law. The above report was generated using voice recognition software. It may contain grammatical, syntax or spelling errors. Electronically signed by: Kendrick Sykes M.D. 06/21/2020 7:59 AM
[2020-06-21] MEDS: INSULIN ASPART 100 UNITS/ML 3 ML PEN SC SCH ×4 (08:52→21:56)
[2020-06-21] MEDS: ATENOLOL 25 MG TABLET PO SCH (08:53)
--- NOTE | 2020-06-21 11:39 | Gastroenterology Progress Note ---
Date of Service June 21, 2020 Assessment & Plan (1) Neuroendocrine carcinoma: (2) Liver metastases: (3) Sepsis: (4) Peritonitis: (5) Acute renal failure: Pt is a 65 y/o male w neuroendocrine tumor of pancreas w liver mets s/p biliary stent placement for obstructive jaundice, currently admitted with sepsis, ARF, bowel obstructive vs ileus w transition point seen at splenic flexure, SBP. NGT, peritoneal drain out. Cr improving. He is passing liquid stools and tolerating CL diet w/o n/v. WBC increased to 22K, afebrile. - Continue Cefepime for SBP treatment - Asked hospitalist to lowery culture and broaden antibx coverage if needed given spike in WBC - Repeat paracentesis via u/s guided and send fluid for cell ct, protein, albumin, cx. - Advance diet as tolerated - Discussed poor prognosis with pt; Palliative care consulted - Nephrology following, appreciate recs Admission and Anticipated Discharge Date Admission Date: June 17, 2020 Supervising Physician Co-Signing Physician Notes Attending attestation I have seen, examined this patient, and agree with the findings and above by our mid-level provider ARELI Mercado, with the following additions: - Doing well, NGT out - UOP better and Cr - drain out - WBC count up, retap for cx - Continue IV abx - Advance diet as tolerated Subjective NGT removed, pt tolerating CL diet. Having loose stools. Denies abd pain, n/v. Peritoneal drain dislodged by itself per RN as insertion site was leaking and catheter slip out Review of Systems Review of Systems: All systems reviewed & are unremarkable except as noted in HPI & below Physical Exam Constitutional: + thin, cooperative and comfortable Eyes: PERRL, conjunctivae normal, anicteric sclerae ENMT: external ear and nose normal, oropharynx normal Respiratory: Auscultation: lungs clear to auscultation bilaterally; no crackles and no wheezes Cardiovascular: RRR, no murmur, no edema Gastrointestinal (Abdomen): Inspection/Auscultation: + abdomen distended (mild) and normal bowel sounds Percussion/Palpation: abdomen soft; abdomen nontender Skin: no rashes, warm and dry no jaundice Psychiatric: A+Ox3, euthymic affect Lymphatic: no lymphedema Results & Data ([facility]) Vital Signs (Past 12 Hours) Vital Signs Temp Pulse Resp BP BP Pulse Ox 06/21/20 07:54 36.8 C 82 18 102/69 97 06/21/20 03:50 36.7 C 82 20 99/52 L 93 (1) Acute renal failure Acute renal failure type: unspecified Qualified Code(s): N17.9 - Acute kidney failure, unspecified
--- NOTE | 2020-06-21 11:52 | Nephrology Progress Note ---
Date of Service June 21, 2020 Assessment & Plan (1) Acute renal failure: LOREN no longer oligoanuric. baseline creatinine 0.8 mid May; presenting creatinine 2.5 on 810-20 AM; creatinine 3.0 on presentation, plateau'd in low 3s now down slightly to 2.6 today. in the setting of ACEI, metformin and minimal po with worsening cancer status, relative hypotension >> this alone may be enough to explain his situation>> cause is ischemic ATN in setting of illness; no obstruction on imaging -with his advanced cancer this patient is not a candidate for dialysis >>IVF off now; agree wtih albumin after his tap 2 x 25 gm -follow up cultures; impression is more advanced dehydration and worsening cancer burden than sepsis >>increasing 02 needs noted; CXR yesterday looked better actually; ok to use lasix prn worsenign dyspnea -monitor for sbp -cont to monitor vanco levels with most every dose >> high risk for complications (2) Neuroendocrine carcinoma: -follow up palliative care recs and discussions Admission and Anticipated Discharge Date Admission Date: June 17, 2020 Subjective Surg recommends NGT removal which has been done. Abdominal drain also out. WBC spiked. And patient had 2.5 L paracentesis with subsequent low blood pressure. No pain no shortness of breath lasting liquid stools. Review of Systems Review of Systems: All systems reviewed & are unremarkable except as noted in HPI & below Physical Exam Constitutional: well developed, + frail appearing (Fatigued and weak) and + malnourished; no acute distress Eyes: EOM intact bilaterally ENMT: Ears: no external ear abnormality Nose: no external nose abnormality Mouth: + dry oral mucous membranes Neck: no nuchal rigidity Respiratory: able to speak in complete sentences; no labored breathing and does not use accessory muscles Auscultation: + diminished lung sounds Cardiovascular: Rate/Rhythm: regular rate and regular rhythm Extremities: no edema Gastrointestinal (Abdomen): Inspection/Auscultation: + abdomen distended (less) and normal bowel sounds Percussion/Palpation: abdomen nontender and no guarding Musculoskeletal: Extremities: + abnormal strength (generalized weakness) Skin: no rashes, warm and dry Psychiatric: Orientation: alert and oriented x 3 Affect: + flat affect Results & Data ([facility]) Vital Signs (Past 12 Hours) Vital Signs Temp Pulse Resp BP BP Pulse Ox 06/21/20 07:54 36.8 C 82 18 102/69 97 06/21/20 03:50 36.7 C 82 20 99/52 L 93 Laboratory Results 06/21/20 06:31 06/21/20 06:31 (1) Acute renal failure Acute renal failure type: unspecified Qualified Code(s): N17.9 - Acute kidney failure, unspecified
--- NOTE | 2020-06-21 13:09 | Pharmacy Report ---
Pharmacy Abx Dose Short Note - Date of Service June 21, 2020 - Assessment & Plan Assessment 65 year old M receiving vancomycin/cefepime for treatment of peritonitis Day # 4 of antimicrobial therapy. Abdominal culture preliminary growing alpha strep non enterococcus. Possibly de-escalation of vancomycin once finalized. WBC increased today to 22. Plan Vancomycin * Random level this AM 19.7 SCr 2.52 yesterday 2.63 today * Half life estimate ~ 25-26 hours, will schedule 750 mg q24H for now * Goal trough level 15-20 mcg/mL * Trough currently not ordered; reassess renal function in AM Pharmacy will continue to follow and will adjust dose/frequency as necessary. Thank you.
--- NOTE | 2020-06-21 14:57 | Ultrasound Report ---
ULTRASOUND-GUIDED DIAGNOSTIC PARACENTESIS: HISTORY: Ascites. Procedure: The procedure and its risks, benefits and alternatives were discussed with the patient and written informed consent was obtained. Preliminary ultrasound of the abdomen was performed to determ ine a safe needle entry site. The left lower quadrant was prepped and draped in the usual sterile fashion. 1% Lidocaine was used fo r local anesthesia. A paracentesis needle-sheath was inserted into the peritoneal space using ultraso und guidance. The needle was removed and the sheath was connected to tubing and a vacuum suction edmar ce. A total of 3.3 liters of yellow ascites was aspirated. Near-complete resolution of the ascites wa s demonstrated. The sheath was removed and a sterile dressing applied. The patient tolerated the procedure well and there were no immediate complications. IMPRESSION: Ultrasound-guided therapeutic paracentesis with aspiration of 3.3 liters of ascites. 1 L was sent to the laboratory at the request of the referring physician. ACT 112: Negative or not required by law. Electronically signed by: Isidro Soto M.D. 06/21/2020 2:55 PM
[2020-06-21 15:39] LABS: Albumin Peritoneal Fluid 1.1 g/dl; Total Protein Peritoneal Fluid 2.6 g/dl
[2020-06-21] MEDS: CEFEPIME 2,000 MG in SYRINGE 7.5 ML IV SCH (15:56)
--- NOTE | 2020-06-21 15:57 | Palliative Care Progress Note ---
Date of Service June 21, 2020 Assessment & Plan (1) Goals of care, counseling/discussion: Patient is a 65-year-old male with a prior history of diabetes and hypertension who was diagnosed with pancreatic CA with mets to the liver in early May. Patient presented with jaundice and scleral icterus. Scan showed a mass at the head of the pancreas-he had a biliary stent placed, biopsy of the pancreas as well as lesions in the liver-consistent with metastatic neuroendocrine carcinoma. Patient started to develop ascites after the stent was placed-he presented to [facility] on 06/17 with increased abdominal pain and shortness of breath due to ascites. Patient was also hypotensive and tachycar dic on presentation. His potassium was 6.4 on admission-with appropriate treatment is down to 5.7 today. Patient underwent paracentesis-5 L removed- suggestive of SBP. Patient is currently on IV antibiotics. -I met with patient in room 209. Pt daughter at his bedside. Patient in no apparent distress. -Patient had 3.3L removed today via paracentesis. He denies pain or SOB. -Lengthy conversations held in previous days regarding hospice and palliative care. I did discuss the difference between the services. He would like to talk again with his present. -A POLST would be helpful prior to discharge. -Patient has 2 daughters, Analy who lives locally age 41, and Annie who lives in [place] age 38. They have 6 grandchildren and 1 great grandchild. They have 1 daughter who is in the medical field. -Both patient and are realistic and seem to grasp the seriousness of his current status and prognosis -Palliative service will continue to follow and assist patient and family with medical decision making. I advised nursing to contact palliative care cell phone if family arrives this weekend in the morning. (2) Peritonitis: Continue IV antibiotics, Pleurx drain to gravity (3) Neuroendocrine carcinoma: Discussed questions patient and would need to ask oncology regarding possible chemo (4) Liver metastases: (5) Abdominal ascites: Status post paracentesis for 5 L-continuing to attempt to diurese with IV albumin and Lasix. (6) Shortness of breath: Markedly improved status post paracentesis Admission and Anticipated Discharge Date Admission Date: June 17, 2020 Subjective Pt sitting upright in his bed in no apparent distress Pt had another paracentesis done today where 3.3L fluid removed Pt said that he had some abdominal pain early today that improved after the paracentesis He tolerated the full liquid diet Denies CP, SOB Review of Systems Review of Systems: All systems reviewed & are unremarkable except as noted in HPI & below Physical Exam Constitutional: + thin and + frail appearing Respiratory: Auscultation: + diminished lung sounds Cardiovascular: RRR, no murmur, no edema Gastrointestinal (Abdomen): Percussion/Palpation: + guarding, + abdomen rigid and + ascites Skin: + dry skin Psychiatric: A+Ox3, euthymic affect Results & Data ([facility]) Vital Signs (Past 12 Hours) Vital Signs Temp Pulse Resp BP BP Pulse Ox 06/21/20 15:55 87/47 L 06/21/20 15:07 36.6 C 78 21 83/47 L 81/44 L 91 06/21/20 11:55 36.5 C 79 16 95/54 L 98 06/21/20 07:54 36.8 C 82 18 102/69 97 PG Care Time/CCT Total # of Minutes Spent Total Time Spent with Patient: Total time spent is greater than 50% in coordination of care (as documented) at patient's floor/unit and/or counseling patient: 35 Coding Level of Care Code 82491 Subseq Hosp Care Lvl 3 Diagnoses Goals of care, counseling/discussion Z71.89 Peritonitis K65.9 Neuroendocrine carcinoma C7A.8 Liver metastases C78.7 Abdominal ascites R18.8 Shortness of breath R06.02 Time Spent (min) 35 Time Spent Midlevel Total time spent 35 mintues with > 50% of that time spent assessing the patient and discussing goals of care.
[2020-06-21] MEDS ORDERED: ALBUMIN 25% 50 ML IV ONE (16:01)
[2020-06-21 16:19] LABS: Appearance Peritoneal Fluid HAZY; Color Peritoneal Fluid YELLOW; RBC Peritoneal Fluid (A) < 3000 /uL; WBC Peritoneal Fluid (A) 7465 /ul (0-300)
[2020-06-21 16:20] LABS: Basophils, Fluid 0 %; Eosinophils, Fluid 0 %; Lymphocytes, Fluid 1 %; Mono,Macrophage,Mesothelial 2 %; Neutrophils, Fluid 97 %
--- NOTE | 2020-06-21 17:33 | Hospitalist Progress Note ---
Date of Service June 21, 2020 Assessment & Plan (1) Sepsis: (2) Abdominal ascites: 65-year-old male with PMH of 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 Paracentesis performed in ED with 5 L drainage and peritoneal catheter left in place. Peritoneal fluid with >11,000 wbcs and growth of moderate gram positive cocci -final culture pending Peritoneal catheter has not been draining much. PleurX catheter placed in the ER was removed Abd u/s showed interval decrease in the small amount of ascites. A catheter is noted within the right lower quadrant. Dilated loops of bowel are again noted. Ascites fluid positive for alpha strep not enterococcus S/P repeat paracentesis 06/21 where 3.3 L fluid removed. Fluid sent for culture and cell count Currently on IV cefepime and Vancomycin Albumin given post procedure (3) Neuroendocrine carcinoma: (4) Liver metastases: Diagnosed 1 month ago with high-grade neuroendocrine tumor with metastatic incurable disease Was due to start chemotherapy on 06/17/20 date of admission but due to ascites and acute renal failure, was sent to [facility] for paracentesis Admitting Provider discussed case with Dr. Ramirez, who stated that patient is not a candidate for palliative chemo at this time with ARF Palliative met with family and not ready to change CODE Status to DNR yet (5) Acute hyperkalemia: K on admission 6.4 No acute EKG changes. Treated in ED with IV calcium, IV bicarb, IV dextrose and IV insulin as well as IV fluids On IV bicarb drip as per nephrology Potassium 3.9 today Continue monitor BMP (6) SVT (supraventricular tachycardia): Possible related to low K Atenolol has been on hold since pt is NPO Atenolol 25mg was resumed, will hold for now due to low BP Continue monitor in tele (7) Acute renal failure: Cr elevated to 3 (0.8 last month), K of 6.4, bicarb of 17 on admission Worsening renal function. Creatinine slightly improved to 2.6 today Nephrology on board Not a candidate for dialysis if renal function worsening Continue monitor BMP (8) Ileus: CT abd pelvis showed ileus vs obstructing colonic lesion Surgical evaluation noted. Patient is not a surgical candidate. Continue conservative management NG tube was placed with low suctioning for decompression KUB today showed distended air-filled loops of large and small bowel appear unchanged from comparison. Will need to limit the use of opioid case discussed with surgery that recommended to d/c the NGT Diet advanced as tolerated (9) Hypotension: BP with systolic 87 Possible related to volume depletion from the recent paracentesis where 3.3 L fluid removed Will hold Atenolol Will give additional albumin Leukocytosis Afebrile Ascites fluid sent for cell count and cx Continue Cefepime and Vanco Blood cx remains negative If spike any fever, will repeat blood cx Will check CBC and procalcitonin in am (10) DM2 (diabetes mellitus, type 2): Hold home agents SSI while in-patient BSG AC HS (11) GERD (gastroesophageal reflux disease): Continue PPI DVT Ppx: Hep sq CODE STATUS Admission and Anticipated Discharge Date Admission Date: June 17, 2020 Subjective Pt was seen and examined Lying in bed with no distress Pt had another paracentesis done today where 3.3L fluid removed Pt said that he had some abdominal pain early today that improved after the paracentesis He tolerated the full liquid diet He had bowel movement today Denies any chest pain, palpitation, dizziness and SOB Physical Exam 2 Physical Exam: General- No acute distress Head- atraumatic Eyes- PERRL, EOMI, ENT- oropharynx clear Neck- supple, no JVD Lungs- clear to auscultation Heart- regular rhythm; no murmur Abdomen- +bowel sound, +Ascites Extremities- no calf tenderness Neuro- alert, oriented x 3; PERRL, EOMI; no facial palsy; no dysarthria Skin- warm & dry Results & Data Results & Data ([facility]) Vital Signs (Past 12 Hours) Vital Signs Temp Pulse Resp BP BP Pulse Ox 06/21/20 15:55 87/47 L 06/21/20 15:07 36.6 C 78 21 83/47 L 81/44 L 91 06/21/20 11:55 36.5 C 79 16 95/54 L 98 06/21/20 07:54 36.8 C 82 18 102/69 97 (1) Acute renal failure Acute renal failure type: unspecified Qualified Code(s): N17.9 - Acute kidney failure, unspecified
[2020-06-22] MEDS: HEPARIN SOD 5,000 UNIT/0.5 ML VIAL SQ SCH ×3 (06:34→21:40)
[2020-06-22 06:42] LABS: Hematocrit (blood only) 32.7 % (42-52); Hemoglobin 11.1 g/dL (14.0-18.0); Mean Corpuscular Hgb Conc 33.9 g/dL (32-36); Mean Corpuscular Volume 91.3 fL (80-100); Mean Platelet Volume 10.8 fL (7.4-10.4); Platelet Count 198 K/uL (130-400); RDW Coefficient of Variation 14.9 % (11.5-14.5); Red Blood Count 3.58 M/uL (4.7-6.1); White Blood Count 21.04 K/uL (4.8-10.8)
[2020-06-22 07:13] LABS: BUN Creatinine Ratio 35.8 (10-20); Calcium 7.3 mg/dl (8.5-10.1); Creatinine Clr Calc Pharmacy 23.5 ml/min; Est GFR (African American) 24.3; Potassium 3.4 mmol/L (3.5-5.1)
--- NOTE | 2020-06-22 07:31 | XRay Report ---
XR chest 1V portable HISTORY: 65 years-old Male f/u follow-up study in a patient with shortness of breath COMPARISON: Chest radiograph 06/20/2020 TECHNIQUE: Portable AP view of the chest FINDINGS: Cardiac silhouette is enlarged, unchanged. Right internal jugular central venous catheter is stable. Mild right hemidiaphragmatic elevation. Persistent bibasilar opacities with probable trace pleural ef fusions. Mild pulmonary vascular congestion. No pneumothorax. Degenerative changes of the shoulders a nd spine. IMPRESSION: 1. Cardiomegaly with pulmonary vascular congestion. 2. Persistent bibasilar opacities with probable trace pleural effusions. ACT 112: Negative or not required by law. The above report was generated using voice recognition software. It may contain grammatical, syntax o r spelling errors. Electronically signed by: Harley Mcmahon M.D. 06/22/2020 7:29 AM
[2020-06-22] MEDS: INSULIN ASPART 100 UNITS/ML 3 ML PEN SC SCH ×4 (07:54→21:40)
[2020-06-22] MEDS: VANCOMYCIN HCL 750 MG in SODIUM CHLORIDE 0.9% 250 ML IV SCH (07:55)
[2020-06-22] MEDS: ATENOLOL 25 MG TABLET PO SCH (07:55)
[2020-06-22] MEDS ORDERED: ALBUMIN 25% 50 ML IV ONE (08:00)
[2020-06-22] MEDS: CEFEPIME 2,000 MG in SYRINGE 7.5 ML IV SCH (17:03)
--- NOTE | 2020-06-22 20:12 | Hospitalist Progress Note ---
Date of Service June 22, 2020 Assessment & Plan (1) Sepsis: (2) Abdominal ascites: 65-year-old male with PMH of 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 Paracentesis performed in ED with 5 L drainage and peritoneal catheter left in place. Peritoneal fluid with >11,000 wbcs and growth of moderate gram positive cocci -final culture pending Peritoneal catheter has not been draining much. PleurX catheter placed in the ER was removed Abd u/s showed interval decrease in the small amount of ascites. A catheter is noted within the right lower quadrant. Dilated loops of bowel are again noted. Ascites fluid positive for alpha strep not enterococcus S/P repeat paracentesis 06/21 where 3.3 L fluid removed. Fluid sent for culture and cell count showed no growth so far Currently on IV cefepime and Vancomycin Albumin given post procedure (3) Neuroendocrine carcinoma: (4) Liver metastases: Diagnosed 1 month ago with high-grade neuroendocrine tumor with metastatic incurable disease Was due to start chemotherapy on 06/17/20 date of admission but due to ascites and acute renal failure, was sent to [facility] for paracentesis Admitting Provider discussed case with Dr. Ramirez, who stated that patient is not a candidate for palliative chemo at this time with ARF Palliative met with family and not ready to change CODE Status to DNR yet (5) Acute hyperkalemia: K on admission 6.4 No acute EKG changes. Treated in ED with IV calcium, IV bicarb, IV dextrose and IV insulin as well as IV fluids On IV bicarb drip as per nephrology Potassium 3.4 today K replaced Continue monitor BMP (6) SVT (supraventricular tachycardia): Possible related to low K Atenolol has been on hold since pt is NPO Atenolol 25mg was resumed, will hold for now due to low BP Continue monitor in tele (7) Acute renal failure: Cr elevated to 3 (0.8 last month), K of 6.4, bicarb of 17 on admission Worsening renal function. Creatinine worsening 2.9 today Nephrology on board Not a candidate for dialysis if renal function worsening Continue monitor BMP (8) Ileus: CT abd pelvis showed ileus vs obstructing colonic lesion Surgical evaluation noted. Patient is not a surgical candidate. Continue conservative management NG tube was placed with low suctioning for decompression KUB today showed distended air-filled loops of large and small bowel appear unchanged from comparison. Will need to limit the use of opioid case discussed with surgery that recommended to d/c the NGT Diet advanced as tolerated (9) Hypotension: BP has been running in the 90's systolic Possible related to volume depletion from the recent paracentesis where 3.3 L fluid removed Will hold Atenolol Will give additional albumin Leukocytosis Afebrile Ascites fluid sent for cell count and cx Continue Cefepime and Vanco Blood cx remains negative WBC 21K and procalcitonin elevated Will repeat blood cx (10) DM2 (diabetes mellitus, type 2): Hold home agents SSI while in-patient BSG AC HS (11) GERD (gastroesophageal reflux disease): Continue PPI DVT Ppx: Hep sq CODE STATUS Admission and Anticipated Discharge Date Admission Date: June 17, 2020 Subjective Pt was seen and examined Lying in bed with no distress with daughter at bedside Pt said that he feels a little better Tolerated his diet Denies any chest pain, palpitation, dizziness and SOB Physical Exam Physical Exam: General- No acute distress Head- atraumatic Eyes- PERRL, EOMI, ENT- oropharynx clear Neck- supple, no JVD Lungs- clear to auscultation Heart- regular rhythm; no murmur Abdomen- +bowel sound, +Ascites Extremities- no calf tenderness Neuro- alert, oriented x 3; PERRL, EOMI; no facial palsy; no dysarthria Skin- warm & dry Results & Data Results & Data ([facility]) Vital Signs (Past 12 Hours) Vital Signs Temp Pulse Resp BP Pulse Ox 06/22/20 20:02 36.5 C 77 18 94/49 L 94 06/22/20 15:05 36.8 C 76 18 91/47 L 97 (1) Acute renal failure Acute renal failure type: unspecified Qualified Code(s): N17.9 - Acute kidney failure, unspecified
[2020-06-22] MEDS ORDERED: POTASSIUM CHLORIDE 20 MEQ TABCR PO STA (20:13)
[2020-06-22] MEDS ORDERED: MELATONIN 3 MG TAB PO PRN (23:21)
[2020-06-23] MEDS: HEPARIN SOD 5,000 UNIT/0.5 ML VIAL SQ SCH ×2 (06:16→13:47)
[2020-06-23] MEDS: INSULIN ASPART 100 UNITS/ML 3 ML PEN SC SCH ×3 (08:11→16:40)
[2020-06-23] MEDS: VANCOMYCIN HCL 750 MG in SODIUM CHLORIDE 0.9% 250 ML IV SCH (08:19)
[2020-06-23] MEDS ORDERED: VANCOMYCIN TROUGH ONE (08:30)
[2020-06-23 08:43] LABS: Hematocrit (blood only) 34.9 % (42-52); Hemoglobin 11.9 g/dL (14.0-18.0); Mean Corpuscular Hemoglobin 30.7 pg (25-34); Mean Corpuscular Hgb Conc 34.1 g/dL (32-36); Mean Corpuscular Volume 90.2 fL (80-100); Mean Platelet Volume 11.6 fL (7.4-10.4); Platelet Count 219 K/uL (130-400); RDW Coefficient of Variation 14.9 % (11.5-14.5); RDW Standard Deviation 48.8 fL (36.4-46.3); Red Blood Count 3.87 M/uL (4.7-6.1); White Blood Count 23.63 K/uL (4.8-10.8)
[2020-06-23 09:47] LABS: BUN Creatinine Ratio 32.9 (10-20); Calcium 7.2 mg/dl (8.5-10.1); Creatinine Clr Calc Pharmacy 20.7 ml/min; Est GFR (African American) 20.8; Potassium 3.8 mmol/L (3.5-5.1)
--- NOTE | 2020-06-23 11:32 | Nephrology Progress Note ---
Date of Service June 23, 2020 Assessment & Plan (1) Acute renal failure: LOREN no longer oligoanuric. baseline creatinine 0.8 mid May; presenting creatinine 2.5 on 8-20 AM; creatinine 3.0 on presentation, plateau'd in low 3s a few days then down to lloyd 2.6 on 06/21, now uptrending with worsened infection to 3.4 today, highest creat this admission. in the setting of ACEI, metformin and minimal po with worsening cancer status, relative hypotension >> this alone may be enough to explain his situation>> now with occult infection (?peritonitis ? bacteremia ? pneumonia ? UTI) and vancomycin toxicity >> probably still with ischemic ATN in setting of illness and elevated vanco levels ; no obstruction on admission imaging -with his advanced cancer this patient is not a candidate for dialysis; he and his are aware -follow up cultures; impression is more advanced dehydration and worsening cancer burden than sepsis though elevated WBC concerning >>increasing 02 needs noted and CXR with congestion; ok to use lasix prn worsenign dyspnea; ? role for CT chest -continue to cover for spont bact peritonitis -cont to monitor vanco levels daily and dose by level only no standing dose >>he had high level this AM and had dose before level posted; vanco now on hold -- pharmacy aware -ok from renal standpoint to remove matta (2) Neuroendocrine carcinoma: -follow up palliative care recs and discussions for this terminal stage CA Care coordinated with Dr Pino Admission and Anticipated Discharge Date Admission Date: June 17, 2020 Subjective feeling ok > not sob, not reaccumulating abd fluid that he notes; tolerating matta. sat up today and felt pretty tired after just that. no pain in chest or musculoskeletal. Review of Systems Review of Systems: All systems reviewed & are unremarkable except as noted in HPI & below Physical Exam Constitutional: well developed, + frail appearing (Fatigued and weak) and + malnourished; no acute distress Eyes: EOM intact bilaterally ENMT: Ears: no external ear abnormality Nose: no external nose abnormality Mouth: + dry oral mucous membranes Neck: no nuchal rigidity Respiratory: able to speak in complete sentences; no labored breathing and does not use accessory muscles Auscultation: + diminished lung sounds Cardiovascular: Rate/Rhythm: regular rate and regular rhythm Extremities: no edema Gastrointestinal (Abdomen): Inspection/Auscultation: + abdomen distended (less) and normal bowel sounds Percussion/Palpation: + ascites (+ but less than al exams); abdomen nontender and no guarding Musculoskeletal: Extremities: + abnormal strength (generalized weakness) Skin: no rashes, warm and dry Neurologic: reyes, fluent speech, generalized weakness Psychiatric: Orientation: alert and oriented x 3 Affect: + flat affect Genitourinary: matta with ample urine Results & Data ([facility]) Vital Signs (Past 12 Hours) Vital Signs Temp Pulse Resp BP BP Pulse Ox 06/23/20 07:51 36.4 C L 92 H 16 96/50 L 95 06/23/20 03:28 36.4 C L 78 18 100/50 L 96 Laboratory Results 06/23/20 08:21 06/23/20 08:[facility] Diagnostic Findings CXR yesterday 1. Cardiomegaly with pulmonary vascular congestion. 2. Persistent bibasilar opacities with probable trace pleural effusions. (1) Acute renal failure Acute renal failure type: unspecified Qualified Code(s): N17.9 - Acute kidney failure, unspecified
--- NOTE | 2020-06-23 13:52 | Palliative Care Progress Note ---
Date of Service June 23, 2020 Assessment & Plan (1) Goals of care, counseling/discussion: Patient is a 65-year-old male with a prior history of diabetes and hypertension who was diagnosed with pancreatic CA with mets to the liver in early May. Patient presented with jaundice and scleral icterus. Scan showed a mass at the head of the pancreas-he had a biliary stent placed, biopsy of the pancreas as well as lesions in the liver-consistent with metastatic neuroendocrine carcinoma. Patient started to develop ascites after the stent was placed-he presented to [facility] on 06/17 with increased abdominal pain and shortness of breath due to ascites. Patient was also hypotensive and tachycar dic on presentation. His potassium was 6.4 on admission-with appropriate treatment is down to 5.7 today. Patient underwent paracentesis-5 L removed- suggestive of SBP. Patient is currently on IV antibiotics. -I met with patient in room 209. Pt daughter and at his bedside. Patient in no apparent distress. -Lengthy conversation held with daughter, , and patient regarding goals of care. -They met with the Catalyst Operator today who indicated worsening renal failure and not an HD candidate based on his other extensive comorbidities. -We discussed code status and he would like to be changed to DNR/DNI. -A POLST form was completed. DNR/DNI, [employer] OFFICER, trial abx and no artificial nutrition/hydration. -Pt would like to return home with hospice services. Pt is a retired home health nurse. One daughter lives local and can help. -Pt would need a hospital bed, walker, bedside table, & supplemental O2 -Patient has 2 daughters, Analy who lives locally age 41, and Annie who lives in [place] age 38. They have 6 grandchildren and 1 great grandchild. They have 1 daughter who is in the medical field. -Both patient and are realistic and seem to grasp the seriousness of his current status and prognosis. -We will discontinue all blood draws, cardiac monitoring. Continue current medications until he is home and hospice can modify the medication regimen. -Discontinue matta catheter at discharge. -All of the above discussed with the hospitalist and rn case management. -Life expectancy weeks to a month with the additional end stage kidney function. -PPS: 30% (2) Peritonitis: Continue IV antibiotics, Pleurx drain to gravity (3) Neuroendocrine carcinoma: Discussed questions patient and would need to ask oncology regarding possible chemo (4) Liver metastases: (5) Abdominal ascites: Status post paracentesis for 5 L-continuing to attempt to diurese with IV albumin and Lasix. (6) Shortness of breath: Markedly improved status post paracentesis Admission and Anticipated Discharge Date Admission Date: June 17, 2020 Subjective Pt sitting in his bed in no apparent distress. Daughter and at bedside. Denies any chest pain, palpitation, dizziness and SOB Review of Systems Review of Systems: Patient denies pain, fever, chills, chest pain, shortness of breath or abdominal pain Presenting shortness of breath Physical Exam Constitutional: + thin and + frail appearing Respiratory: Auscultation: + diminished lung sounds Cardiovascular: RRR, no murmur, no edema Gastrointestinal (Abdomen): Percussion/Palpation: + guarding, + abdomen rigid and + ascites Skin: + dry skin Psychiatric: A+Ox3, euthymic affect Results & Data ([facility]) Vital Signs (Past 12 Hours) Vital Signs Temp Pulse Resp BP BP Pulse Ox 06/23/20 11:48 36.8 C 89 18 90/49 L 96 06/23/20 07:51 36.4 C L 92 H 16 96/50 L 95 06/23/20 03:28 36.4 C L 78 18 100/50 L 96 PG Care Time/CCT Total # of Minutes Spent Total Time Spent with Patient: Total time spent is greater than 50% in coordination of care (as documented) at patient's floor/unit and/or counseling patient: 45 Coding Level of Care Code 14477 Subseq Hosp Care Lvl 3 Diagnoses Goals of care, counseling/discussion Z71.89 Peritonitis K65.9 Neuroendocrine carcinoma C7A.8 Liver metastases C78.7 Abdominal ascites R18.8 Shortness of breath R06.02 Time Spent (min) 45 Time Spent Midlevel Total time spent 45 minutes with > 50% of that time spent assessing the patient, discussing goals of care and completing a POLST.
--- NOTE | 2020-06-23 15:43 | Pharmacy Report ---
Pharmacy Abx Dose Short Note - Date of Service June 23, 2020 - Assessment & Plan Assessment 65 year old M receiving Vancomycin for treatment of Sepsis, GI source. Blood cxs from 06/17 show NGTD. New blood cxs ordered for today. Day #6 of Vancomycin therapy. Plan Vancomycin * Trough level of 26.7 mcg/mL is supra-therapeutic. * Trough level and Serum creatinine resulted close to 10 AM today due to equipment failure in the lab. * Vancomycin dose 750 mg IV was given this AM before trough could be evaluated. * Spoke to Dr. Ayala, patient is in acute renal failure. Requested that Vancomycin be dosed based on level. * Will utilize one-time dosing with random levels. * Vancomycin on hold for now. * Goal trough level for possible bactermia: 15 to 20 mcg/mL * Random level ordered for: 06/25/20 with AM labs Pharmacy will continue to follow and will adjust dose/frequency as necessary. Thank you.
[2020-06-23] MEDS: CEFEPIME 2,000 MG in SYRINGE 7.5 ML IV SCH (16:39)
[2020-06-23] MEDS: ONDANSETRON INJ 2 MG/ML 2 ML VIAL IV PRN ×2 (17:21→20:34)
--- NOTE | 2020-06-23 17:43 | Hospitalist Progress Note ---
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 Paracentesis performed in ED with 5 L drainage and peritoneal catheter left in place. Peritoneal fluid with >11,000 wbcs and growth of moderate gram positive cocci -final culture pending Peritoneal catheter has not been draining much. PleurX catheter placed in the ER was removed Abd u/s showed interval decrease in the small amount of ascites. A catheter is noted within the right lower quadrant. Dilated loops of bowel are again noted. Ascites fluid positive for alpha strep not enterococcus S/P repeat paracentesis 06/21 where 3.3 L fluid removed. Fluid sent for culture and cell count showed no growth so far Currently on IV cefepime and Vancomycin Albumin given post procedure Patient and family met with palliative care to discussed about goals of care Code status was changed to DNR and family would like to transition care to comfort care only (3) Neuroendocrine carcinoma: (4) Liver metastases: Diagnosed 1 month ago with high-grade neuroendocrine tumor with metastatic incurable disease Was due to start chemotherapy on 06/17/20 date of admission but due to ascites and acute renal failure, was sent to [facility] for paracentesis Admitting Provider discussed case with Dr. Ramirez, who stated that patient is not a candidate for palliative chemo at this time with ARF Palliative met with family and not ready to change CODE Status to DNR yet (5) Acute hyperkalemia: K on admission 6.4 No acute EKG changes. Treated in ED with IV calcium, IV bicarb, IV dextrose and IV insulin as well as IV fluids On IV bicarb drip as per nephrology Potassium 3.4 today K replaced Continue monitor BMP (6) SVT (supraventricular tachycardia): Possible related to low K Atenolol has been on hold since pt is NPO Atenolol 25mg was resumed, will hold for now due to low BP Continue monitor in tele (7) Acute renal failure: Cr elevated to 3 (0.8 last month), K of 6.4, bicarb of 17 on admission Worsening renal function. Creatinine worsening 3.4 today Nephrology on board Not a candidate for dialysis if renal function continue to worsening Pt and family would like to transition to comfort care only after meeting with palliative care (8) Ileus: CT abd pelvis showed ileus vs obstructing colonic lesion Surgical evaluation noted. Patient is not a surgical candidate. Continue conservative management NG tube was placed with low suctioning for decompression KUB today showed distended air-filled loops of large and small bowel appear unchanged from comparison. Will need to limit the use of opioid case discussed with surgery that recommended to d/c the NGT Diet advanced as tolerated (9) Hypotension: BP has been running in the 90's systolic Possible related to volume depletion from the recent paracentesis where 3.3 L fluid removed Will hold Atenolol Will give additional albumin Leukocytosis Afebrile Ascites fluid sent for cell count and cx Continue Cefepime and Vanco Blood cx remains negative WBC continue to increase 23K and procalcitonin elevated Repeat blood cx collected this morning pending Will d/c antibiotic since pt was transition to comfort care (10) DM2 (diabetes mellitus, type 2): Hold home agents SSI while in-patient BSG AC HS (11) GERD (gastroesophageal reflux disease): Continue PPI DVT Ppx: Hep sq CODE STATUS DNR Transition to comfort care Admission and Anticipated Discharge Date Admission Date: June 17, 2020 Subjective Pt was seen and examined Lying in bed with no distress Pt said that he feels ok patient and family met with palliative care to discussed about goals of care Code status was changed to DNR and family would like to transition care to comfort care only Denies any pain, palpitation and SOB Physical Exam Physical Exam: General- No acute distress Head- atraumatic Eyes- PERRL, EOMI, ENT- oropharynx clear Neck- supple, no JVD Lungs- clear to auscultation Heart- regular rhythm; no murmur Abdomen- +bowel sound, +Ascites Extremities- no calf tenderness Neuro- alert, oriented x 3; PERRL, EOMI; no facial palsy; no dysarthria Skin- warm & dry Results & Data Results & Data ([facility]) Vital Signs (Past 12 Hours) Vital Signs Temp Pulse Resp BP BP Pulse Ox 06/23/20 15:03 36.5 C 86 18 92/50 L 95 06/23/20 11:48 36.8 C 89 18 90/49 L 96 06/23/20 07:51 36.4 C L 92 H 16 96/50 L 95 (1) Acute renal failure Acute renal failure type: unspecified Qualified Code(s): N17.9 - Acute kidney failure, unspecified
[2020-06-23] MEDS: HEPARIN 100 UNIT/ML 5ML FLUSH FLUSH PRN (22:05)
--- NOTE | 2020-06-24 11:21 | Hospitalist Progress Note ---
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 Paracentesis performed in ED with 5 L drainage and peritoneal catheter left in place. Peritoneal fluid with >11,000 wbcs and growth of moderate gram positive cocci -final culture pending Peritoneal catheter has not been draining much. PleurX catheter placed in the ER was removed Abd u/s showed interval decrease in the small amount of ascites. A catheter is noted within the right lower quadrant. Dilated loops of bowel are again noted. Ascites fluid positive for alpha strep not enterococcus S/P repeat paracentesis 06/21 where 3.3 L fluid removed. Fluid sent for culture and cell count showed no growth so far Currently on IV cefepime and Vancomycin Albumin given post procedure Patient and family met with palliative care to discussed about goals of care Code status was changed to DNR and family would like to transition care to comfort care only (3) Neuroendocrine carcinoma: (4) Liver metastases: Diagnosed 1 month ago with high-grade neuroendocrine tumor with metastatic incurable disease Was due to start chemotherapy on 06/17/20 date of admission but due to ascites and acute renal failure, was sent to [facility] for paracentesis Admitting Provider discussed case with Dr. Ramirez, who stated that patient is not a candidate for palliative chemo at this time with ARF Palliative met with family and not ready to change CODE Status to DNR yet (5) Acute hyperkalemia: K on admission 6.4 No acute EKG changes. Treated in ED with IV calcium, IV bicarb, IV dextrose and IV insulin as well as IV fluids On IV bicarb drip as per nephrology Potassium 3.4 today K replaced Continue monitor BMP (6) SVT (supraventricular tachycardia): Possible related to low K Atenolol has been on hold since pt is NPO Atenolol 25mg was resumed, will hold for now due to low BP Continue monitor in tele (7) Acute renal failure: Cr elevated to 3 (0.8 last month), K of 6.4, bicarb of 17 on admission Worsening renal function. Creatinine worsening 3.4 today Nephrology on board Not a candidate for dialysis if renal function continue to worsening Pt and family would like to transition to comfort care only after meeting with palliative care (8) Ileus: CT abd pelvis showed ileus vs obstructing colonic lesion Surgical evaluation noted. Patient is not a surgical candidate. Continue conservative management NG tube was placed with low suctioning for decompression KUB today showed distended air-filled loops of large and small bowel appear unchanged from comparison. Will need to limit the use of opioid case discussed with surgery that recommended to d/c the NGT Diet advanced as tolerated (9) Hypotension: BP has been running in the 90's systolic Possible related to volume depletion from the recent paracentesis where 3.3 L fluid removed Will hold Atenolol BP stable Leukocytosis Afebrile Ascites fluid sent for cell count and cx Continue Cefepime and Vanco Blood cx remains negative WBC continue to increase 23K and procalcitonin elevated Repeat blood cx collected this morning pending Will d/c antibiotic since pt was transition to comfort care with home hospice (10) DM2 (diabetes mellitus, type 2): Hold home agents SSI while in-patient BSG AC HS (11) GERD (gastroesophageal reflux disease): Continue PPI DVT Ppx: Hep sq CODE STATUS DNR Transition to home hospice Admission and Anticipated Discharge Date Admission Date: June 17, 2020 Subjective Pt was seen and examined. Lying in bed with no distress family and patient met yesterday with palliative and decision was made to transition to comfort care Family is ready to take him home today Pt said that he feels the same Denies any chest pain palpitation and sob Physical Exam Physical Exam: General- No acute distress Head- atraumatic Eyes- PERRL, EOMI, ENT- oropharynx clear Neck- supple, no JVD Lungs- clear to auscultation Heart- regular rhythm; no murmur Abdomen- +bowel sound, +Ascites Extremities- no calf tenderness Neuro- alert, oriented x 3; PERRL, EOMI; no facial palsy; no dysarthria Skin- warm & dry (1) Acute renal failure Acute renal failure type: unspecified Qualified Code(s): N17.9 - Acute kidney failure, unspecified
[2020-06-24] MEDS: HEPARIN 100 UNIT/ML 5ML FLUSH FLUSH PRN (11:22)
--- NOTE | 2020-06-26 20:29 | Discharge Summary ---
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 Patient began to notice jaundice in mid-April of this year along with abdominal pain and 40 pound weight loss. Was transferred from [facility] ED to [facility] for liver biopsy and further management. Underwent ERCP/EUS on 05/15/2020 which included biopsies of the pancreatic mass and liver lesion and a mid-distal CBD stent was placed to relieve the obstruction. Biopsy from the liver mass and pancreatic FNA is consistent with a high-grade features of neuroendocrine tumor. Established care with Dr. Ramirez two weeks ago and was told he had metastatic incurable disease and was offered palliative chemotherapy of etoposide and cisplatin, which he was scheduled to start today. Due to nausea and significant abdominal bloating, chemo treatment was held and patient was sent to [facility] ED for further evaluation and ultrasound-guided paracentesis. Patient is feeling weak and nauseous. Abdominal tightness is improving with par acentesis. Denies any fever and chills, lightheadedness, visual changes, chest pain, palpitations, abdominal pain, diarrhea or constipation. Decreased appetite and decreased urine output in the past few days. Admission Exam Per Admitting Provider General Appearance: vitals as above, appears chronically ill,sitting up in bed, pleasant, conversational dyspnea Head: normocephalic, atraumatic Eyes: normal inspection, PERRL, conjunctivae normal, anicteric sclerae ENT: external ear and nose normal, oropharynx normal Neck: trachea midline, no thyromegaly, normal visual inspection Respiratory: normal respiratory effort, diminished lung sounds throughout. Normal insp/exp effort, no accessory muscle use Cardiovascular: tachycardic rate, regular rhythm, no murmur appreciated, normal peripheral pulses. Vessels: no JVD Chest: normal inspection of chest Abdomen/GI: normal bowel sounds, taut distended abdomen with paracentesis catheter in place draining yellow liquid into collection bag, non-tender Extremities/Musculoskeletal: no cyanosis or clubbing, extremities motor strength 5/5 Neurologic: PERRL, EOMI, accommodation nl, no face palsy, no dysarthria, CN's II-XI intact bilaterally and moves all extremities Psychiatric: A+Ox3, euthymic affect. + poor insight Skin: no rashes, normal color, warm/dry Principal Diagnosis Sepsis: Abdominal ascites: Neuroendocrine carcinoma: Liver metastases: Acute hyperkalemia: SVT (supraventricular tachycardia): Acute renal failure: Discharge Exam General- No acute distress Head- atraumatic Eyes- PERRL, EOMI, ENT- oropharynx clear Neck- supple, no JVD Lungs- clear to auscultation Heart- regular rhythm; no murmur Abdomen- +bowel sound, +Ascites Extremities- no calf tenderness Neuro- alert, oriented x 3; PERRL, EOMI; no facial palsy; no dysarthria Skin- warm & dry Discharge Data Allergies Allergy/AdvReac Type Severity Reaction Status Date / Time No Known Allergies Allergy Verified 06/17/20 15:58 Consultations 06/17/20 15:43 ED Decision to Admit Stat 06/17/20 17:07 Consult Case Management - Discharge Planning Routine Consult Nephrology Routine Consult Palliative Care Routine 06/17/20 18:02 Consult General Surgery Routine 06/17/20 18:31 Consult Gastroenterology Routine Ordered Studies 06/17/20 15:50 CT abd pelvis wo con Urgent US abdomen complete Urgent 06/18/20 13:00 US abdomen ltd ascites Routine 06/21/20 13:30 US paracentesis abd w/image Routine Hospital Course (1) Sepsis: (2) Abdominal ascites: 65-year-old male with PMH of 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 Paracentesis performed in ED with 5 L drainage and peritoneal catheter left in place. Peritoneal fluid with >11,000 wbcs and growth of moderate gram positive cocci -final culture pending Peritoneal catheter has not been draining much. PleurX catheter placed in the ER was removed Abd u/s showed interval decrease in the small amount of ascites. A catheter is noted within the right lower quadrant. Dilated loops of bowel are again noted. Ascites fluid positive for alpha strep not enterococcus S/P repeat paracentesis 06/21 where 3.3 L fluid removed. Fluid sent for culture and cell count showed no growth so far Currently on IV cefepime and Vancomycin Albumin given post procedure Patient and family met with palliative care to discussed about goals of care Code status was changed to DNR and family would like to transition care to comfort care only (3) Neuroendocrine carcinoma: (4) Liver metastases: Diagnosed 1 month ago with high-grade neuroendocrine tumor with metastatic incurable disease Was due to start chemotherapy on 06/17/20 date of admission but due to ascites and acute renal failure, was sent to [facility] for paracentesis Admitting Provider discussed case with Dr. Ramirez, who stated that patient is not a candidate for palliative chemo at this time with ARF Palliative met with family and not ready to change CODE Status to DNR yet (5) Acute hyperkalemia: K on admission 6.4 No acute EKG changes. Treated in ED with IV calcium, IV bicarb, IV dextrose and IV insulin as well as IV fluids On IV bicarb drip as per nephrology Potassium 3.4 today K replaced Continue monitor BMP (6) SVT (supraventricular tachycardia): Possible related to low K Atenolol has been on hold since pt is NPO Atenolol 25mg was resumed, will hold for now due to low BP Continue monitor in tele (7) Acute renal failure: Cr elevated to 3 (0.8 last month), K of 6.4, bicarb of 17 on admission Worsening renal function. Creatinine worsening 3.4 today Nephrology on board Not a candidate for dialysis if renal function continue to worsening Pt and family would like to transition to comfort care only after meeting with palliative care (8) Ileus: CT abd pelvis showed ileus vs obstructing colonic lesion Surgical evaluation noted. Patient is not a surgical candidate. Continue conservative management NG tube was placed with low suctioning for decompression KUB today showed distended air-filled loops of large and small bowel appear unchanged from comparison. Will need to limit the use of opioid case discussed with surgery that recommended to d/c the NGT Diet advanced as tolerated (9) Hypotension: BP has been running in the 90's systolic Possible related to volume depletion from the recent paracentesis where 3.3 L fluid removed Will hold Atenolol BP stable Leukocytosis Afebrile Ascites fluid sent for cell count and cx Continue Cefepime and Vanco Blood cx remains negative WBC continue to increase 23K and procalcitonin elevated Repeat blood cx collected this morning pending Will d/c antibiotic since pt was transition to comfort care with home hospice (10) DM2 (diabetes mellitus, type 2): Hold home agents SSI while in-patient BSG AC HS (11) GERD (gastroesophageal reflux disease): Continue PPI DVT Ppx: Hep sq CODE STATUS DNR Transition to home hospice Total Time Total Time Spent Total Time Spent (In Minutes): 35 minutes Total Time Includes: Examination of the Patient, Discharge Planning, Medication Reconciliation, Communication With Other Providers and Other Discharge Plan Discharge Items Patient Disposition: Hospice - Home Reason For Visit: METASTATIC NEUROENDOCRINE CA, RENAL FAILURE, Discharge Diagnosis: Sepsis: Abdominal ascites: Neuroendocrine carcinoma: Liver metastases: Acute hyperkalemia: SVT (supraventricular tachycardia): Acute renal failure: Activity: Resume your previous activity Non-emergency contact: Primary Care Provider Call non-emergency contact if: you have any medication questions Follow-up/Referrals: Mireille Solorzano DO [Primary Care Provider] - Diet: Heart Healthy Addtl Attending Provider Instructions: Discharge with home hospice Fall precaution Continue oxygen supplement for comfort care Pending Studies at Discharge: No Stand[facility]Alone [facility] Medications and DC Order Prescriptions: New melatonin 3 mg Tablet 3 mg PO HS PRN (Reason: sleep) 30 Days Qty: 30 RF: 0 lorazepam 0.5 mg tablet 0.5 mg buccal Q12H PRN (Reason: anxiety) Qty: 10 RF: 0 Continued omeprazole 20 mg capsule,delayed release(DR/EC) 20 mg PO HS RF: 0 ondansetron HCl 4 mg tablet 8 mg PO Q8H PRN (Reason: Nausea) RF: 0 prochlorperazine maleate [Compazine] 10 mg Tablet 10 mg PO Q6H PRN (Reason: Nausea) RF: 0 oxycodone-acetaminophen [Percocet] 5-325 mg tablet 1 tab PO Q6H PRN (Reason: pain) Qty: 7 RF: 0 Discontinued metformin 500 mg tablet 500 mg PO QAM RF: 0 aspirin 81 mg Tablet,Delayed Release (Dr/Ec) 81 mg PO PM RF: 0 cyanocobalamin (vitamin B-12) [Vitamin B-12] 500 mcg Tablet 500 mcg PO PM RF: 0 lisinopril 2.5 mg tablet 2.5 mg PO HS RF: 0 omega 5-toq-mby-fish oil [Fish Oil] 1,000 mg (120 mg-180 mg) Capsule 1 cap PO PM RF: 0 atenolol 50 mg tablet 50 mg PO DAILY RF: 0 Discharge Orders: Discharge Order (Routine); Ordered 06/24/20 Ordered By: Kt Toussaint/Other Patient Handouts: Starting Hospice Admission Data Admit Date/Time: 06/17/20 15:57 Attending Provider: Kt Pino Admit Provider: Lainey Solares Primary Care Provider: Mireille Solorzano Other Providers: Tuyet Rincon I. ; [facility] ; Lainey Solares ; Mariangel Ayala ; Jacy Joyner ; John Guerrero ; Merritt Allred Other Interventions: Discharge Summary Assessment (RN) Last Done: 06/24/20 11:41
== END 2020-06-24 12:55 | disposition hospice, home (50) | DRG 871 ==
LOC: ED 13:18 → SUATTDRO 15:57 → 2E 15:57 → 3E 06-23 17:44